=== PATIENT | female | born 1965 | race Caucasian/White ===

== ENCOUNTER → 2016-08-16 | Outpatient (CLI) | payer MEDICARE, MEDICAID ==
[~2016-08-16] MED LIST: /ESOM40CA OR; /FEXO18TA OR; ALBU17IN2 IN; AMBI10TA OR; ASPI81TA83 OR; CIPRO OR; DEXI60CA PO; FISH1000 OR; FLAX10005 PO; HYDR25TA6 OR; MULTIVIT OR; OXYC15TA76 PO; PERC5TAB8 OR; PROAIR INH; RANI15TA PO; SOMA350T PO; SOYCAP PO; VIT D 2000 OR; VITA500T OR; XANA1TAB2 OR; [UNRECOGNIZED DRUG - OTHER]
[2016-08-16 08:23] LABS: BASO # 0.1 K/mm3 (0.0-0.2); BASO % 1.4 % (0.0-1.0); EOS # 0.2 K/mm3 (0.0-0.50); EOS % 2.8 % (0.0-3.0); LYMPH # 2.1 K/mm3 (1.5-4.5); MEAN CORPUSCULAR HEMOGLOBIN 23.3 pg (27.0-33.0); MEAN CORPUSCULAR HGB CONC 31.4 g/dl (32.0-36.5); MEAN CORPUSCULAR VOLUME 74.2 fl (80.0-96.0); MONO # 0.4 K/mm3 (0.0-0.8); MONO % 7.2 % (0.0-5.0); NEUTROPHILS # 2.6 K/mm3 (1.8-7.7); NEUTROPHILS % 48.4 % (36.0-66.0); RED CELL DISTRIBUTION WIDTH 18.2 % (11.5-14.5); WHITE BLOOD COUNT 5.3 K/mm3 (4.0-10.0)
[2016-08-16 08:52] LABS: ALBUMIN 3.5 GM/DL (3.2-5.2); ALBUMIN/GLOBULIN RATIO 0.92 (1.00-1.93); ALKALINE PHOSPHATASE 112 U/L (45-117); ALT/SGPT 18 U/L (12-78); ANION GAP 9 MEQ/L (8-16); AST/SGOT 13 U/L (15-37); BILIRUBIN,TOTAL 0.2 MG/DL (0.2-1.0); BLOOD UREA NITROGEN 15 MG/DL (7-18); CALCIUM LEVEL 9.2 MG/DL (8.5-10.1); CARBON DIOXIDE LEVEL 30 MEQ/L (21-32); CHLORIDE LEVEL 104 MEQ/L (98-107); CHOLESTEROL LEVEL 159 MG/DL (<200); CREATININE FOR GFR 0.86 MG/DL (0.55-1.02); FERRITIN 5 NG/ML (8-252); FREE T4 1.13 NG/DL (0.76-1.46); GLOMERULAR FILTRATION RATE > 60.0 (>51); GLUCOSE, FASTING 110 MG/DL (70-105); PERCENT SATURATION 4.3 % (13.2-37.4); POTASSIUM SERUM 3.3 MEQ/L (3.5-5.1); SODIUM LEVEL 143 MEQ/L (136-145); TOTAL IRON BINDING CAPACITY 445 UG/DL (250-450); TOTAL PROTEIN 7.3 GM/DL (6.4-8.2); TRIGLYCERIDES LEVEL 80 MG/DL (<150)
[2016-08-16 10:39] LABS: FOLATE 7.1 NG/ML; VITAMIN B12 LEVEL 212 PG/ML
== END ==
LOC: M LAB 07:41
PROVIDERS: ATTEND Physician Assistant
DX: E55.9 Vitamin D deficiency, unspecified (principal); I10 Essential (primary) hypertension; Z86.39 Personal history of other endocrine, nutritional and metabolic disease; D50.9 Iron deficiency anemia, unspecified; M79.7 Fibromyalgia; R73.03 Prediabetes; K21.9 Gastro-esophageal reflux disease without esophagitis; J30.9 Allergic rhinitis, unspecified; K44.9 Diaphragmatic hernia without obstruction or gangrene; Z79.899 Other long term (current) drug therapy

== ENCOUNTER → 2016-11-08 | Outpatient (REF) | payer MEDICARE, MEDICAID ==
[2016-11-08 14:19] LABS: RETICULOCYTE % ADVIA2120 1.4 % (0.5-1.5)
[2016-11-08 14:29] LABS: FERRITIN 5 NG/ML (8-252); PERCENT SATURATION 6.8 % (13.2-37.4); TOTAL IRON BINDING CAPACITY 454 UG/DL (250-450); TOTAL PROTEIN 7.6 GM/DL (6.4-8.2)
[2016-11-08 14:40] LABS: VITAMIN B12 LEVEL 267 PG/ML (247-911)
[2016-11-12 10:34] LABS: ALBUMIN 3.94 GM/DL (3.29-5.55); ALBUMIN % 51.9 % (55.8-66.1)
[2016-11-12 10:35] LABS: GAMMA GLOBULIN % 18.4 % (11.1-18.8)
== END ==
LOC: M LAB REF 13:28
PROVIDERS: ATTEND Internal Medicine Medical Oncology
DX: D64.9 Anemia, unspecified (principal)

== ENCOUNTER → 2016-12-12 | Outpatient (CLI) | payer MEDICARE, MEDICAID ==
[~2016-12-12] MED LIST changes: +E-Z-GAS II EFFERVESCENT PACKET (SODIUM BICARB./CITRIC ACID/SIMETHICONE) As Ordered ONE; +E-Z-HD 98% w/w 340GM SUSP BTL As Ordered ONE; +E-Z-PAQUE 96% w/w SUSP 176GM BTL As Ordered ONE
--- NOTE | 2016-12-12 16:06 | REP ---
UPPER GI, SINGLE CONTRAST: The procedure was performed under the direct supervision of Dr. Jc. The images were reviewed with Dr. Jc. The stock order lister film shows no organomegaly or pathological masses. The intestinal gas pattern is nonspecific. Liquid barium was given in the erect and prone oblique positions. The oral and pharyngeal stages of deglutition are unremarkable. Esophageal transport is prompt and efficient and there is no esophagitis, stricture, mucosal ring or hiatal hernia. The patient is status post Vincenzo fundoplasty. Contrast is seen passing through the gastroesophageal junction without delay. There is no evidence of stricture or obstruction. Gastroesophageal reflux is not demonstrated on this examination. The stomach jiménez are normally outlined. The rugal folds are smooth and regular. There is no gastritis, neoplasm or ulcer disease. The duodenal jiménez are normally outlined. The mucosal folds are smooth and regular. There is no duodenitis, pancreatitis, peptic ulcer disease, or neoplasm. The visualized portion of the proximal small bowel appears normal in course and caliber. IMPRESSION: Postsurgical changes consistent with the patient's history of Vincenzo fundoplasty. Otherwise unremarkable single contrast upper GI examination. 2 minutes and 20 seconds of fluoroscopy time was utilized for this procedure. Reviewed by TOO Carrasco 12/12/2016 04:26 PEdited and Signed by Theo Jc MD 12/12/2016 04:43 P
== END ==
LOC: M RAD 09:34
PROVIDERS: ATTEND Physician Assistant Surgical
DX: Z98.890 Other specified postprocedural states (principal)

== ENCOUNTER → 2017-02-02 | Outpatient (CLI) | payer MEDICARE, MEDICAID ==
[~2017-02-02] MED LIST changes: -E-Z-GAS II EFFERVESCENT PACKET (SODIUM BICARB./CITRIC ACID/SIMETHICONE) As Ordered ONE; -E-Z-HD 98% w/w 340GM SUSP BTL As Ordered ONE; -E-Z-PAQUE 96% w/w SUSP 176GM BTL As Ordered ONE
--- NOTE | 2017-02-05 16:54 | REP ---
MRI study of the left ankle without contrast: History: Left ankle pain. Evaluate tendon transfer. Achilles tendinopathy pain. The patient is status post flexor hallicis longus tendon transfer. Comparison prior postoperative MRI study is retrieved from an outside institution dated 01/10/2015. Technique: Sagittal, axial and coronal imaging planes utilized. T1 proton density T2-weighted scans were obtained with and without fat saturation. MRI findings: There is a non metallic screw fixation device oriented somewhat vertically in the posterior calcaneus as on the prior study associated with the flexor hallucis longus tendon transfer procedure. The transferred tendon shows some thickening as does the quinault Achilles tendon. On proton density weighted images there is some increased signal intensity in both the transferred tendon in the distal Achilles tendon although this is improved when compared with the appearance on the previous study. There is no adjacent marrow edema in the calcaneus. This is also an improvement. There does appear to be some heterotopic bone formation along the superior aspect of the calcaneus anterior to the pain 10 tendon transfer. No danilo tendon discontinuity is seen. There is a small quantity of ankle joint fluid visible anteriorly and laterally. No osteochondral defect lesion is seen. The peroneus longus and brevis tendons appear intact. The tibialis posterior and flexor digitorum tendons appear intact. No ligament disruption is seen at the ankle. Impression: Moderate to advanced distal Achilles tendinopathy. The patient status post flexor hallicis longus tendon transfer procedure with some tendinosis in the transfer tendon. Heterotopic bone formation is seen. The appearance is improved when compared with the prior MRI imaging 01/10/2015. Signed by Gilberto Stewart MD 02/05/2017 05:54 P
== END ==
LOC: M RAD 10:32
PROVIDERS: ATTEND Orthopaedic Surgery
DX: M25.572 Pain in left ankle and joints of left foot (principal); Z48.89 Encounter for other specified surgical aftercare

== ENCOUNTER → 2017-03-05 | Outpatient (REF) | payer MEDICARE, MEDICAID ==
[~2017-03-05] MED LIST changes: -DEXI60CA PO; +DEXI60CA2 PO
[2017-03-05 15:51] LABS: PERCENT SATURATION 6.5 % (13.2-37.4)
== END ==
LOC: M LAB REF 13:30
PROVIDERS: ATTEND Internal Medicine Medical Oncology
DX: C50.919 Malignant neoplasm of unspecified site of unspecified female breast (principal)

== ENCOUNTER → 2017-04-05 | Outpatient (CLI) | payer MEDICARE, MEDICAID ==
[2017-04-05 08:21] LABS: BASO % 0.9 % (0.0-1.0); EOS # 0.2 K/mm3 (0.0-0.50); EOS % 3.2 % (0.0-3.0); LYMPH # 2.1 K/mm3 (1.5-4.5); LYMPH % 43.7 % (24.0-44.0); MEAN CORPUSCULAR HEMOGLOBIN 24.7 pg (27.0-33.0); MEAN CORPUSCULAR HGB CONC 31.5 g/dl (32.0-36.5); MEAN CORPUSCULAR VOLUME 78.2 fl (80.0-96.0); MONO # 0.3 K/mm3 (0.0-0.8); MONO % 6.1 % (0.0-5.0); NEUTROPHILS % 43.7 % (36.0-66.0); RED CELL DISTRIBUTION WIDTH 16.8 % (11.5-14.5); WHITE BLOOD COUNT 4.6 K/mm3 (4.0-10.0)
[2017-04-05 08:41] LABS: ALBUMIN 3.2 GM/DL (3.2-5.2); ALBUMIN/GLOBULIN RATIO 0.82 (1.00-1.93); ALKALINE PHOSPHATASE 101 U/L (45-117); ALT/SGPT 18 U/L (12-78); ANION GAP 8 MEQ/L (8-16); AST/SGOT 16 U/L (15-37); BILIRUBIN,TOTAL 0.4 MG/DL (0.2-1.0); BLOOD UREA NITROGEN 16 MG/DL (7-18); CALCIUM LEVEL 8.6 MG/DL (8.5-10.1); CARBON DIOXIDE LEVEL 29 MEQ/L (21-32); CHLORIDE LEVEL 107 MEQ/L (98-107); CHOLESTEROL LEVEL 145 MG/DL (<200); CREATININE FOR GFR 0.77 MG/DL (0.55-1.02); FERRITIN 6 NG/ML (8-252); GLOMERULAR FILTRATION RATE > 60.0 (>51); GLUCOSE, FASTING 103 MG/DL (70-105); PERCENT SATURATION 8.3 % (13.2-45.0); POTASSIUM SERUM 3.7 MEQ/L (3.5-5.1); SODIUM LEVEL 144 MEQ/L (136-145); TOTAL IRON BINDING CAPACITY 410 UG/DL (250-450); TOTAL PROTEIN 7.1 GM/DL (6.4-8.2); TRIGLYCERIDES LEVEL 85 MG/DL (<150)
[2017-04-05 09:03] LABS: FOLATE 14.3 NG/ML; VITAMIN B12 LEVEL 346 PG/ML
== END ==
LOC: M LAB 07:35
PROVIDERS: ATTEND Physician Assistant
DX: I10 Essential (primary) hypertension (principal); D50.9 Iron deficiency anemia, unspecified; M79.7 Fibromyalgia; K21.9 Gastro-esophageal reflux disease without esophagitis; K44.9 Diaphragmatic hernia without obstruction or gangrene; E87.6 Hypokalemia; R73.03 Prediabetes; E53.8 Deficiency of other specified B group vitamins

== ENCOUNTER → 2017-04-05 | Outpatient (CLI) | payer MEDICARE, MEDICAID ==
--- NOTE | 2017-04-05 11:49 | REP ---
NUCLEAR GASTRIC EMPTYING SCAN: Following the oral administration of 1.04 mCi of technetium-99m sulfur colloid in two scrambled eggs with 6 ounces of water multiple images of the upper abdomen are performed in the anterior and posterior projections for 90 minutes. The gastric activity is measured and the gastric emptying time is calculated. At the end of 90 minutes 64% of the ingested activity has emptied from the stomach. This yields a T1/2 of 73 minutes which is normal. IMPRESSION: Normal gastric emptying. Signed by Theo Jc MD 04/05/2017 11:59 A
== END ==
LOC: M RAD 08:04
PROVIDERS: ATTEND Physician Assistant Surgical
DX: R14.0 Abdominal distension (gaseous) (principal); I10 Essential (primary) hypertension; D50.9 Iron deficiency anemia, unspecified; M79.7 Fibromyalgia; K21.9 Gastro-esophageal reflux disease without esophagitis; K44.9 Diaphragmatic hernia without obstruction or gangrene; E55.9 Vitamin D deficiency, unspecified; E87.6 Hypokalemia; R73.03 Prediabetes; E53.8 Deficiency of other specified B group vitamins
CPT/HCPCS: 36415; 78264; 80053; 80061; 82306; 82607; 82728; 82746; 83036; 83550; 84443; 85027; A9541

== ENCOUNTER → 2017-10-10 | Outpatient (REF) | payer MEDICARE, MEDICAID ==
[2017-10-10 14:05] LABS: INFLUENZA A AMPLIFICATION NEGATIVE (NEGATIVE); INFLUENZA B AMPLIFICATION NEGATIVE (NEGATIVE)
== END ==
LOC: M LAB REF 13:01
DX: Z11.59 Encounter for screening for other viral diseases (principal)
CPT/HCPCS: 87502

== ENCOUNTER → 2017-10-31 | Outpatient (REF) | payer MEDICARE, MEDICAID ==
[2017-10-31 19:21] LABS: RETIC HEMOGLOBIN EQUIVALENT 27.5 pg (24-36); RETICULOCYTE # 43.1 10^9/L (17-77)
[2017-10-31 19:31] LABS: C REACTIVE PROTEIN QUANTITATIV 0.33 MG/DL (0.00-0.30); FERRITIN 5 NG/ML (8-252); IRON (FE) 25 UG/DL (50-170); PERCENT SATURATION 5.6 % (13.2-45.0); TOTAL IRON BINDING CAPACITY 448 UG/DL (250-450)
[2017-10-31 21:18] LABS: ERYTHROCYTE SEDIMENTATION RATE 26 mm/hr (0-30)
[2017-11-05 00:07] LABS: SOLUBLE TRANSFERRIN RECEPTOR 31.2 nmol/L (12.2-27.3)
== END ==
LOC: M LAB REF 18:08
DX: D50.9 Iron deficiency anemia, unspecified (principal)
CPT/HCPCS: 83550

== ENCOUNTER → 2018-01-28 | Outpatient (CLI) | payer MEDICARE, MEDICAID ==
[2018-01-28 11:46] LABS: ERYTHROCYTE SEDIMENTATION RATE 19 mm/hr (0-30)
[2018-01-28 12:52] LABS: ALBUMIN 3.3 GM/DL (3.2-5.2); ALBUMIN/GLOBULIN RATIO 0.87 (1.00-1.93); ALKALINE PHOSPHATASE 110 U/L (45-117); ALT/SGPT 26 U/L (12-78); AMYLASE 47 U/L (25-115); AST/SGOT 15 U/L (7-37); BILIRUBIN,DIRECT < 0.1 MG/DL (0.0-0.2); BILIRUBIN,TOTAL 0.2 MG/DL (0.2-1.0); C REACTIVE PROTEIN QUANTITATIV 0.47 MG/DL (0.00-0.30); LIPASE 156 U/L (73-393); TOTAL PROTEIN 7.1 GM/DL (6.4-8.2)
== END ==
LOC: M LAB 10:46
DX: R10.13 Epigastric pain (principal); R68.81 Early satiety; K21.9 Gastro-esophageal reflux disease without esophagitis; R19.4 Change in bowel habit; E55.9 Vitamin D deficiency, unspecified

== ENCOUNTER → 2018-03-27 | Outpatient (CLI) | payer MEDICARE, MEDICAID ==
[2018-03-27 08:57] LABS: C REACTIVE PROTEIN QUANTITATIV 0.43 MG/DL (0.00-0.30); FERRITIN 6 NG/ML (8-252); IRON (FE) 39 UG/DL (50-170); PERCENT SATURATION 9.5 % (13.2-45.0); TOTAL IRON BINDING CAPACITY 412 UG/DL (250-450)
[2018-03-27 09:03] LABS: FOLATE 8.4 NG/ML; VITAMIN B12 LEVEL 219 PG/ML
[2018-03-27 09:20] LABS: ERYTHROCYTE SEDIMENTATION RATE 16 mm/hr (0-30)
== END ==
LOC: M LAB 08:03
DX: E53.8 Deficiency of other specified B group vitamins (principal); D50.9 Iron deficiency anemia, unspecified; M79.7 Fibromyalgia
CPT/HCPCS: 82746

== ENCOUNTER → 2018-04-15 | Outpatient (CLI) | payer MEDICARE, MEDICAID ==
[2018-04-15 09:00] LABS: BASO # 0.1 10^3/uL (0.0-0.2); BASO % 1.1 % (0.0-1.0); EOS # 0.1 10^3/uL (0.0-0.50); EOS % 2.7 % (0.0-3.0); HEMATOCRIT 37.7 % (36.0-47.0); HEMOGLOBIN 11.9 g/dl (12.0-15.5); IMMATURE GRANULOCYTE % 0.8 % (0-3.0); LYMPH # 2.1 10^3/uL (1.5-4.5); LYMPH % 40.4 % (24.0-44.0); MEAN CORPUSCULAR HEMOGLOBIN 25.9 pg (27.0-33.0); MEAN CORPUSCULAR HGB CONC 31.6 g/dl (32.0-36.5); MONO # 0.4 10^3/uL (0.0-0.8); MONO % 7.5 % (0.0-5.0); NEUTROPHILS # 2.5 10^3/uL (1.8-7.7); NEUTROPHILS % 47.5 % (36.0-66.0); PLATELET COUNT, AUTOMATED 303 10^3/uL (150-450); RED CELL DISTRIBUTION WIDTH 15.8 % (11.5-14.5); WHITE BLOOD COUNT 5.2 10^3/uL (4.0-10.0)
[2018-04-15 09:10] LABS: ESTIMATED AVERAGE GLUCOSE 131 MG/DL (60-110); HEMOGLOBIN A1c 6.2 %
[2018-04-15 09:24] LABS: ALBUMIN 3.5 GM/DL (3.2-5.2); ALKALINE PHOSPHATASE 106 U/L (45-117); ALT/SGPT 20 U/L (12-78); ANION GAP 7 MEQ/L (8-16); AST/SGOT 17 U/L (7-37); BILIRUBIN,TOTAL 0.3 MG/DL (0.2-1.0); BLOOD UREA NITROGEN 14 MG/DL (7-18); CARBON DIOXIDE LEVEL 28 MEQ/L (21-32); CHLORIDE LEVEL 107 MEQ/L (98-107); CHOLESTEROL LEVEL 164 MG/DL (<200); CHOLESTEROL RISK RATIO 3.727 (<5); CREATININE FOR GFR 0.75 MG/DL (0.55-1.30); FERRITIN 8 NG/ML (8-252); GLOMERULAR FILTRATION RATE > 60.0 (>51); GLUCOSE, FASTING 109 MG/DL (70-100); HDL CHOLESTEROL 44 MG/DL (>40); NON-HDL-C 120 MG/DL; SODIUM LEVEL 142 MEQ/L (136-145); THYROID STIMULATING HORMONE 0.427 uIU/ML (0.358-3.740); TOTAL PROTEIN 7.4 GM/DL (6.4-8.2); TRIGLYCERIDES LEVEL 85 MG/DL (<150)
[2018-04-15 10:08] LABS: FOLATE 9.4 NG/ML (>5.4)
[2018-04-15 10:34] LABS: APPEARANCE, URINE TURBID (CLEAR); BACTERIA, URINE AUTO NEGATIVE (NEGATIVE); BILIRUBIN, URINE AUTO NEGATIVE (NEGATIVE); BLOOD, URINE BLOOD NEGATIVE (NEGATIVE); COLOR, URINE YELLOW (YELLOW); GLUCOSE, URINE (UA) AUTO NEGATIVE (NEGATIVE); KETONE, URINE AUTO NEGATIVE (NEGATIVE); LEUKOCYTE ESTERASE, URINE AUTO NEGATIVE (NEGATIVE); MUCUS, URINE MODERATE (NEGATIVE); NITRITE, URINE AUTO NEGATIVE (NEGATIVE); PROTEIN, URINE AUTO 1+ mg/dL (NEGATIVE); RBC, URINE AUTO 0 /HPF (0-3); SQUAMOUS EPITHELIAL CELL UR AU 12 /HPF (0-6); UROBILINOGEN, URINE AUTO 0.2 mg/dL (0.0-2.0); WBC, URINE AUTO 1 /HPF (0-3)
== END ==
LOC: M LAB 07:48
DX: I10 Essential (primary) hypertension (principal); D50.9 Iron deficiency anemia, unspecified; J30.9 Allergic rhinitis, unspecified; M79.7 Fibromyalgia; R73.03 Prediabetes; K21.9 Gastro-esophageal reflux disease without esophagitis; E55.9 Vitamin D deficiency, unspecified; E53.8 Deficiency of other specified B group vitamins; Z79.899 Other long term (current) drug therapy
CPT/HCPCS: 82746

== ENCOUNTER → 2018-04-26 | Outpatient (REF) | payer MEDICARE, MEDICAID ==
[2018-04-30 00:06] LABS: H PYLORI STOOL ANTIGEN Negative (Negative)
== END ==
LOC: M LAB REF 10:29
DX: K21.9 Gastro-esophageal reflux disease without esophagitis (principal); Z86.19 Personal history of other infectious and parasitic diseases
CPT/HCPCS: 87338

== ENCOUNTER → 2018-10-21 | Outpatient (CLI) | payer MEDICARE, MEDICAID ==
[~2018-10-21] MED LIST changes: +LOSA50TA5 PO
--- NOTE | 2018-10-21 12:50 | REP ---
Chest two views HISTORY: Right chest wall lesion Comparison: 08/24/2013 The lungs are clear. The heart is normal in size. The pulmonary vasculature is normal in appearance. The bony structure is intact. IMPRESSION: No acute disease. Electronically Signed by Mathieu Monroy MD 10/21/2018 12:41 P
--- NOTE | 2018-10-21 12:57 | REP ---
UNILATERAL RIGHT RIBS, FOUR VIEWS: HISTORY: Chest wall lump. There is no acute fracture or bone lesion. The right lung is clear. IMPRESSION: There is no acute fracture or bone lesion. Electronically Signed by Mathieu Monroy MD 10/21/2018 01:48 P
== END ==
LOC: M RAD 12:04 → M LAB 12:04
PROVIDERS: ATTEND Surgery
DX: R22.2 Localized swelling, mass and lump, trunk (principal)

== ENCOUNTER → 2018-10-27 | Outpatient (CLI) | payer MEDICARE, MEDICAID ==
[2018-10-27 08:40] LABS: BLOOD UREA NITROGEN 17 MG/DL (7-18); CREATININE FOR GFR 0.81 MG/DL (0.55-1.30); GLOMERULAR FILTRATION RATE > 60.0 (>51)
== END ==
LOC: M LAB 07:36
PROVIDERS: ATTEND Surgery
DX: R07.89 Other chest pain (principal)

== ENCOUNTER → 2018-10-28 | Outpatient (CLI) | payer MEDICARE, MEDICAID ==
[~2018-10-28] MED LIST changes: +ISOVUE-370 76% 125ML VIAL (Q9967 PER ML) As Ordered ONE
--- NOTE | 2018-10-28 13:42 | REP ---
CT CHEST WITH IV CONTRAST: HISTORY: Chest wall pain. Question of a mass right chest wall. No comparison chest CT study. Comparison abdomen CT images are from January 28, 2018. CT CONTRAST DOSE: 75 mL of intravenous Isovue [address] FINDINGS: Digital preliminary environmental advisor view is unremarkable. Lung castellano are clear. No infiltrate or pulmonary mass lesion is seen. There is no evidence of pulmonary nodule. There is some linear fibrosis in the lingular segment left upper lobe mild in degree. No pleural or pericardial effusion is seen. No hilar or mediastinal mass or adenopathy is observed. There is no evidence of chest wall mass on either side. No skeletal muscle lesion is seen. No axillary mass or adenopathy is observed. There is evidence of fatty infiltration of the liver diffusely. No adrenal lesion is seen. The visualized upper abdominal structures are otherwise unremarkable. IMPRESSION: No evidence of mass or adenopathy. There is evidence of some fatty infiltration of the liver. No rib lesion is seen. No active cardiopulmonary disease. Electronically Signed by Gilberto Stewart MD 10/28/2018 07:48 P
== END ==
LOC: M RAD 07:37
PROVIDERS: ATTEND Surgery
DX: R22.2 Localized swelling, mass and lump, trunk (principal); I10 Essential (primary) hypertension; D50.9 Iron deficiency anemia, unspecified; R73.03 Prediabetes; F34.1 Dysthymic disorder; R73.01 Impaired fasting glucose
CPT/HCPCS: 36415; 71260; 80053; 80061; 82306; 83036; 84439; 84443; 85027; Q9967

== ENCOUNTER → 2018-10-28 | Outpatient (CLI) | payer MEDICARE, MEDICAID ==
[~2018-10-28] MED LIST changes: -ISOVUE-370 76% 125ML VIAL (Q9967 PER ML) As Ordered ONE
[2018-10-28 08:00] LABS: BASO # 0.1 10^3/uL (0.0-0.2); BASO % 0.9 % (0.0-1.0); EOS # 0.2 10^3/uL (0.0-0.50); EOS % 2.9 % (0.0-3.0); HEMATOCRIT 41.4 % (36.0-47.0); HEMOGLOBIN 13.6 g/dl (12.0-15.5); LYMPH # 2.5 10^3/uL (1.5-4.5); LYMPH % 45.5 % (24.0-44.0); MEAN CORPUSCULAR HEMOGLOBIN 29.2 pg (27.0-33.0); MEAN CORPUSCULAR HGB CONC 32.9 g/dl (32.0-36.5); MONO # 0.4 10^3/uL (0.0-0.8); MONO % 7.3 % (0.0-5.0); NEUTROPHILS # 2.4 10^3/uL (1.8-7.7); NEUTROPHILS % 43.2 % (36.0-66.0); PLATELET COUNT, AUTOMATED 279 10^3/uL (150-450); RED BLOOD COUNT 4.65 10^6/uL (4.00-5.40); WHITE BLOOD COUNT 5.5 10^3/uL (4.0-10.0)
[2018-10-28 08:34] LABS: ALBUMIN 3.5 GM/DL (3.2-5.2); ALT/SGPT 22 U/L (12-78); BILIRUBIN,TOTAL 0.5 MG/DL (0.2-1.0); BLOOD UREA NITROGEN 14 MG/DL (7-18); CARBON DIOXIDE LEVEL 29 MEQ/L (21-32); CHLORIDE LEVEL 106 MEQ/L (98-107); CHOLESTEROL LEVEL 160 MG/DL (<200); CHOLESTEROL RISK RATIO 4.102 (<5); CREATININE FOR GFR 0.89 MG/DL (0.55-1.30); FREE T4 1.05 NG/DL (0.76-1.46); GLOMERULAR FILTRATION RATE > 60.0 (>51); GLUCOSE, FASTING 104 MG/DL (70-100); HDL CHOLESTEROL 39 MG/DL (>40); LDL CHOLESTEROL 98 MG/DL (<100); NON-HDL-C 121 MG/DL; POTASSIUM SERUM 3.5 MEQ/L (3.5-5.1); SODIUM LEVEL 142 MEQ/L (136-145); THYROID STIMULATING HORMONE 0.584 uIU/ML (0.358-3.740); TRIGLYCERIDES LEVEL 114 MG/DL (<150)
[2018-10-28 08:40] LABS: HEMOGLOBIN A1c 6.1 %
[2018-10-28 09:55] LABS: TOTAL 25(OH) VITAMIN D 16.7 NG/ML (30.0-100.0)
== END ==
LOC: M LAB 07:18
PROVIDERS: ATTEND Physician Assistant
DX: I10 Essential (primary) hypertension (principal); D50.9 Iron deficiency anemia, unspecified; R73.03 Prediabetes; F34.1 Dysthymic disorder; R73.01 Impaired fasting glucose

== ENCOUNTER → 2018-11-12 | Outpatient (CLI) | payer MEDICARE, MEDICAID ==
[~2018-11-12] MED LIST changes: -/ESOM40CA OR; +NEXI1CAP3 OR
--- NOTE | 2018-11-12 12:48 | REP ---
THYROID ULTRASOUND: Real-time sonographic evaluation of the thyroid performed. Both lobes are somewhat enlarged, right lobe measuring 5.7 x 2.6 x 2.3 cm and left lobe 5.9 x 1.5 x 2.0 cm. There are multiple nodules and cysts bilaterally. Most of the cysts are complex with internal septations and some solid components. There is a dominant cystic and solid nodule in the right mid aspect 1.6 cm in diameter. Hypoechoic nodule in the right upper pole measures 8 mm at the maximum diameter and in the right lower pole 1.1 cm. Largest nodule on the left is in the mid aspect 1.3 cm in maximum diameter. A few other subcentimeter nodules are seen in the left lob. None of these demonstrate distal acoustic shadowing or demonstrate internal calcifications. IMPRESSION: Multiple nodules and complex cysts bilaterally. None of these are suspicious in appearance to warrant FNA and all have a benign appearance. Recommend followup ultrasound in 6-12 months. Electronically Signed by Theo Jc MD 11/12/2018 04:35 P
== END ==
LOC: M RAD 10:31
PROVIDERS: ATTEND Physician Assistant
DX: E04.1 Nontoxic single thyroid nodule (principal)

== ENCOUNTER → 2019-04-27 | Outpatient (CLI) | payer MEDICARE, MEDICAID ==
[2019-04-27 09:34] LABS: HEMATOCRIT 43.4 % (36.0-47.0); HEMOGLOBIN 14.5 g/dl (12.0-15.5); MEAN CORPUSCULAR HGB CONC 33.4 g/dl (32.0-36.5); MEAN CORPUSCULAR VOLUME 92.9 fl (80.0-96.0); PLATELET COUNT, AUTOMATED 282 10^3/uL (150-450); RED BLOOD COUNT 4.67 10^6/uL (4.00-5.40); WHITE BLOOD COUNT 7.2 10^3/uL (4.0-10.0)
[2019-04-27 10:05] LABS: BLOOD UREA NITROGEN 15 MG/DL (7-18); CALCIUM LEVEL 9.5 MG/DL (8.5-10.1); CARBON DIOXIDE LEVEL 29 MEQ/L (21-32); CHLORIDE LEVEL 104 MEQ/L (98-107); CHOLESTEROL LEVEL 190 MG/DL (<200); CHOLESTEROL RISK RATIO 4.222 (<5); CREATININE FOR GFR 0.72 MG/DL (0.55-1.30); GLOMERULAR FILTRATION RATE > 60.0 (>51); GLUCOSE, FASTING 93 MG/DL (70-100); HDL CHOLESTEROL 45 MG/DL (>40); LDL CHOLESTEROL 121 MG/DL (<100); NON-HDL-C 145 MG/DL; POTASSIUM SERUM 4.3 MEQ/L (3.5-5.1); SODIUM LEVEL 141 MEQ/L (136-145); THYROID STIMULATING HORMONE 0.885 uIU/ML (0.358-3.740); TRIGLYCERIDES LEVEL 121 MG/DL (<150)
== END ==
LOC: M LAB 08:38
DX: E04.1 Nontoxic single thyroid nodule (principal)

== ENCOUNTER → 2019-06-02 | Outpatient (CLI) | payer MEDICARE, MEDICAID ==
--- NOTE | 2019-06-08 15:53 | DEXA ---
AP SPINE L1 - L4 1.243 0.4 1.3 LT FEMUR TOTAL 1.034 0.2 0.9 LT NECK 0.946 -0.7 0.4 RT FEMUR TOTAL 0.999 -0.1 0.6 RT NECK 0.912 -0.9 0.1 TOTAL BODY TOTAL OTHER COMMENTS: Normal bone densitometry of the spine and hips. FOLLOW-UP: Recommendation for the next bone density exam: 5 years. AMBERD
== END ==
LOC: M WHC 11:56
DX: Z00.00 Encounter for general adult medical examination without abnormal findings (principal); K21.9 Gastro-esophageal reflux disease without esophagitis; Z79.51 Long term (current) use of inhaled steroids; Z79.899 Other long term (current) drug therapy

== ENCOUNTER → 2019-09-20 | Outpatient (REF) | payer MEDICARE, MEDICAID ==
[~2019-09-20] MED LIST changes: +ALLE180T33 PO; +AMBI10TA PO; +PROV108A INH; +RA T500C2 PO; +XANA1TAB2 PO
[2019-09-20 21:58] LABS: INFLUENZA A AMPLIFICATION NEGATIVE (NEGATIVE); INFLUENZA B AMPLIFICATION NEGATIVE (NEGATIVE)
== END ==
LOC: M LAB REF 20:54
PROVIDERS: ATTEND Physician Assistant Medical
DX: R50.9 Fever, unspecified (principal)

== ENCOUNTER → 2020-01-20 | Outpatient (CLI) | payer MEDICARE, MEDICAID ==
[~2020-01-20] MED LIST changes: +METH1TAB40 PO; +OXYC-1 PO; -OXYC15TA76 PO; +QC A650T3 PO
--- NOTE | 2020-01-20 16:24 | REP ---
REASON: Facial swelling. Six limited plain film views of the facial bones show no evidence of a gross fracture or paranasal sinus air-fluid levels. Negative limited plain film examination of the facial bones. CT if the gold standard in imaging the facial bones if a fracture is of clinical concern. Additionally, CT is more sensitive in detecting paranasal sinus abnormalities than is plain film. Electronically Signed by Stanley Ward DO 01/20/2020 05:06 P
== END ==
LOC: M RAD 11:33
PROVIDERS: ATTEND Student in an Organized Health Care Education/Training Program
DX: R22.0 Localized swelling, mass and lump, head (principal)

== ENCOUNTER 2020-01-21 16:02 | Emergency (ER) | payer MEDICARE, MEDICAID ==
[~2020-01-21] VITALS: Ht 157.5 cm; Wt 119.2 kg
[~2020-01-21 16:02] MED LIST changes: -METH1TAB40 PO; -QC A650T3 PO
[2020-01-21] MEDS ORDERED: QC A650T3 PO (16:17)
[2020-01-21] MEDS ORDERED: METH1TAB40 PO (16:17)
--- NOTE | 2020-01-21 17:41 | REPVR ---
PROCEDURE INFORMATION: Exam: CT Head Without Contrast Exam date and time: 01/21/2020 5:20 PM Age: 54 years old Clinical indication: Pain; Headache; Prior surgery; Additional info: Subacute trauma, acute dizziness TECHNIQUE: Imaging protocol: Computed tomography of the head without contrast. Radiation optimization: All CT scans at this facility use at least one of these dose optimization techniques: automated exposure control; mA and/or kV adjustment per patient size (includes targeted exams where dose is matched to clinical indication); or iterative reconstruction. COMPARISON: Thyroid, ST head+neck US 11/12/2018 10:42 AM FINDINGS: Brain: No acute intracranial hemorrhage, cerebral edema, or midline shift. Ventricles: No hydrocephalus. Bones/joints: A chronic right zygomatic arch fracture is noted. Sinuses: No acute sinusitis. Mastoid air cells: Visualized mastoid air cells are well aerated. Soft tissues: Unremarkable. IMPRESSION: No acute intracranial abnormality. Electronically signed by: Lc Barth On 01/21/2020 17:40:55 PM
[2020-01-21 18:07] VITALS: BP 132/74
--- NOTE | 2020-01-21 21:37 | ECGEPIP ---
[facility] - ED Test Date: 2020-01-21 Pat Name: JAMES CADET Department: Room: - Gender: Female Nurse Prn: : 1965 Requested By: Sherrie Barfield Order Number: [id number] Reading MD: Ryan Chu Measurements Intervals [place] Rate: 70 P: 26 WA: 181 QRS: -4 QRSD: 88 T: -7 QT: 399 QTc: 432 Interpretive Statements SINUS RHYTHM POOR R WAVE PROGRESSION LOW QRS VOLTAGE IN PRECORDIAL LEADS NONSPECIFIC T WAVE ABNORMALITIES SIMILAR TO 01/28/18 Electronically Signed on 01-21-2020 21:37:01 EDT by Ryan Chu
== END 2020-01-21 18:32 | disposition home or self-care (01) ==
LOC: M ED 16:02
DX: F07.81 Postconcussional syndrome (principal); Z79.899 Other long term (current) drug therapy; Z79.891 Long term (current) use of opiate analgesic

== ENCOUNTER → 2020-02-22 | Outpatient (CLI) | payer MEDICARE, MEDICAID ==
[~2020-02-22] MED LIST changes: +AMOX500C PO; +METH1TAB40 PO; +QC A650T3 PO
== END ==
LOC: M LABSMTC 13:11
PROVIDERS: ATTEND Anesthesiology
DX: Z01.818 Encounter for other preprocedural examination (principal); Z11.59 Encounter for screening for other viral diseases; Z20.828 Contact with and (suspected) exposure to other viral communicable diseases
CPT/HCPCS: C9803; U0002

== ENCOUNTER 2020-02-26 07:04 | Day surgery (SDC) | payer MEDICARE, MEDICAID ==
[~2020-02-26] VITALS: Ht 157.5 cm; Wt 120.7 kg
[~2020-02-26 07:04] MED LIST changes: +LR 1,000 ML IV ONE
[2020-02-26] MEDS ORDERED: fentaNYL 100 MCG/2 ML INJECTION (J3010) As Ordered ONE (07:16)
[2020-02-26] MEDS ORDERED: ONDANSETRON 4MG/2ML VIAL As Ordered ONE (07:16)
[2020-02-26] MEDS ORDERED: MIDAZOLAM INJ 2MG/2ML VIAL (J2250 PER 1MG) As Ordered ONE (07:16)
[2020-02-26] MEDS ORDERED: dexameTHASONE 4 MG/ML 1ML VIAL (J1100 PER 1MG) As Ordered ONE (07:16)
[2020-02-26] MEDS ORDERED: propofoL 200 MG/20 ML VIAL As Ordered ONE (07:17)
[2020-02-26] MEDS ORDERED: LIDOCAINE 2% 100MG/5ML SDV (FOR ANES.) As Ordered ONE (07:17)
[2020-02-26] MEDS ORDERED: DESFLURANE 240 ML INHALANT As Ordered ONE (07:21)
[2020-02-26] MEDS ORDERED: LIDOCAINE W/EPINEPHRINE 1% 20ML VIAL As Ordered ONE (07:47)
[2020-02-26] MEDS ORDERED: OXYMETAZOLINE 0.05% NASAL SPRAY (AFRIN) As Ordered ONE (07:53)
[2020-02-26] MEDS ORDERED: ROCURONIUM BROMIDE 50 MG/5 ML VIAL As Ordered ONE (08:15)
[2020-02-26] MEDS ORDERED: SUCCINYLCHOLINE 100 MG/5 ML SYRINGE (J0330) As Ordered ONE (08:16)
[2020-02-26] MEDS ORDERED: SUGAMMADEX SODIUM 500 MG/5 ML VIAL (BRIDION) As Ordered ONE (08:25)
[2020-02-26] MEDS: fentaNYL 100 MCG/2 ML INJECTION (J3010) IV PRN ×8 (09:00→09:52)
[2020-02-26] MEDS ORDERED: METOCLOPRAMIDE INJ 10MG/2ML VIAL (J2765 PER 1) IV PRN (09:00)
[2020-02-26] MEDS ORDERED: LR 1,000 ML IV SCH ×2 (09:00)
[2020-02-26] MEDS ORDERED: ONDANSETRON 4MG/2ML VIAL IV PRN (09:00)
[2020-02-26] MEDS: oxyCODONE 5MG TAB PO PRN ×2 (09:06→09:47)
[2020-02-26] MEDS: MEPERIDINE INJ 25 MG/ML VIAL (J2175) IV PRN ×2 (09:11→09:16)
[2020-02-26 10:40] VITALS: BP 121/60
== END 2020-02-26 11:09 | disposition home or self-care (01) ==
LOC: M SDC 07:04
PROVIDERS: ATTEND Dentist Oral and Maxillofacial Surgery
DX: K02.9 Dental caries, unspecified (principal); I10 Essential (primary) hypertension; K21.9 Gastro-esophageal reflux disease without esophagitis; M79.7 Fibromyalgia; L40.8 Other psoriasis; E04.9 Nontoxic goiter, unspecified; K44.9 Diaphragmatic hernia without obstruction or gangrene; K58.8 Other irritable bowel syndrome; D64.9 Anemia, unspecified; Z88.1 Allergy status to other antibiotic agents; Z88.5 Allergy status to narcotic agent; Z88.8 Allergy status to other drugs, medicaments and biological substances
CPT/HCPCS: 41899; 88300; J0330; J1100; J2175; J2250; J2405; J2765; J3010

== ENCOUNTER 2020-04-25 17:57 | Emergency (ER) | payer MEDICARE, MEDICAID ==
[~2020-04-25] VITALS: Ht 157.5 cm; Wt 117.7 kg
[~2020-04-25 17:57] MED LIST changes: -LR 1,000 ML IV ONE
--- NOTE | 2020-04-25 18:56 | REPVR ---
PROCEDURE INFORMATION: Exam: CT Head Without Contrast Exam date and time: 04/25/2020 6:32 PM Age: 54 years old Clinical indication: Injury or trauma; Fall; Initial encounter; Blunt trauma (contusions or hematomas); Additional info: Fall, headache TECHNIQUE: Imaging protocol: Computed tomography of the head without contrast. Axial and coronal reformatted images were created and reviewed. Radiation optimization: All CT scans at this facility use at least one of these dose optimization techniques: automated exposure control; mA and/or kV adjustment per patient size (includes targeted exams where dose is matched to clinical indication); or iterative reconstruction. COMPARISON: CT Head without contrast 01/21/2020 5:17 PM FINDINGS: Brain: No CT evidence of acute intracranial hemorrhage or acute territorial infarction. No significant mass effect or midline shift. Basal cisterns patent. Ventricles: Normal in size and configuration. Bones/joints: No acute osseous abnormality. Mild chronic deformity of the right zygomatic arch. Paranasal sinuses: Minimal left ethmoid mucosal thickening. Mastoid air cells: Grossly unremarkable. Soft tissues: Grossly unremarkable. IMPRESSION: 1. No CT evidence of acute intracranial pathology. 2. Additional findings, as above. Electronically signed by: Jairo Khan On 04/25/2020 18:56:22 PM
--- NOTE | 2020-04-25 19:01 | REPVR ---
PROCEDURE INFORMATION: Exam: CT Maxillofacial Without Contrast Exam date and time: 04/25/2020 6:32 PM Age: 54 years old Clinical indication: Injury or trauma; Fall; Initial encounter; Blunt trauma (contusions or hematomas); Jaw; Not specified; Additional info: Fall, headache TECHNIQUE: Imaging protocol: Computed tomography images of the face without contrast. Axial, coronal and sagittal reformatted images were created and reviewed. Radiation optimization: All CT scans at this facility use at least one of these dose optimization techniques: automated exposure control; mA and/or kV adjustment per patient size (includes targeted exams where dose is matched to clinical indication); or iterative reconstruction. COMPARISON: 1. CT Maxilofacial w/out contrast 05/16/2016 4:[address] Head without contrast 01/21/2020 5:17:06 PM FINDINGS: Orbits: No acute intraorbital abnormality. Globes intact. Bones/joints: No acute osseous abnormality. Unchanged deformity of the right zygomatic arch. Paranasal sinuses: Minimal ethmoid mucosal thickening. Soft tissues: Improved right perizygomatic soft tissue swelling. IMPRESSION: 1. Unchanged deformity of the right zygomatic arch with improved overlying soft tissue swelling. 2. Additional findings, as above. Electronically signed by: Jairo Khan On 04/25/2020 19:00:37 PM
--- NOTE | 2020-04-25 19:03 | REPVR ---
PROCEDURE INFORMATION: Exam: CT Cervical Spine Without Contrast Exam date and time: 04/25/2020 6:32 PM Age: 54 years old Clinical indication: Injury or trauma; Fall; Initial encounter; Blunt trauma; Additional info: Fall, headache TECHNIQUE: Imaging protocol: Computed tomography images of the cervical spine without contrast. Axial, coronal and sagittal reformatted images were created and reviewed. Radiation optimization: All CT scans at this facility use at least one of these dose optimization techniques: automated exposure control; mA and/or kV adjustment per patient size (includes targeted exams where dose is matched to clinical indication); or iterative reconstruction. COMPARISON: Thyroid, ST head+neck US 11/12/2018 10:42 AM FINDINGS: Vertebrae: Osteopenia. Straightening of the normal cervical lordosis. Minimal anterolisthesis of C6 on C7 and C7 on T1. Alignment otherwise anatomic. Mild dextroscoliosis. No CT evidence of acute fracture, dislocation or subluxation. Vertebral body heights maintained. Discs/Spinal canal/Neural foramina: Mild multilevel degenerative changes, characterized by disc space narrowing, osteophytosis and uncovertebral and facet joint hypertrophy. Mild multilevel neural foraminal narrowing. No significant spinal stenosis. Thyroid gland: 1.1 cm low-density right thyroid nodule (no follow-up is indicated based on the imaging appearance). Soft tissues: Grossly unremarkable. Lungs: Grossly unremarkable. IMPRESSION: 1. No CT evidence of acute cervical spine traumatic injury. 2. Additional findings, as above. Electronically signed by: Jairo Khan On 04/25/2020 19:03:18 PM
[2020-04-25] MEDS ORDERED: ACETAMINOPHEN 500 MG TAB PO ONE (19:15)
[2020-04-25 19:54] VITALS: BP 131/69
== END 2020-04-25 19:57 | disposition home or self-care (01) ==
LOC: M ED 17:57
DX: G50.1 Atypical facial pain (principal); S80.211A Abrasion, right knee, initial encounter; S80.212A Abrasion, left knee, initial encounter; S80.811A Abrasion, right lower leg, initial encounter; S80.812A Abrasion, left lower leg, initial encounter; R51 Headache; W10.8XXA Fall (on) (from) other stairs and steps, initial encounter; Y92.410 Unspecified street and highway as the place of occurrence of the external cause; Z88.4 Allergy status to anesthetic agent; Z88.1 Allergy status to other antibiotic agents; Z88.5 Allergy status to narcotic agent; Z88.6 Allergy status to analgesic agent; Z88.8 Allergy status to other drugs, medicaments and biological substances; Z88.2 Allergy status to sulfonamides; Z79.899 Other long term (current) drug therapy; Z79.891 Long term (current) use of opiate analgesic; Z87.828 Personal history of other (healed) physical injury and trauma

== ENCOUNTER → 2020-05-25 | Outpatient (CLI) | payer MEDICARE, MEDICAID ==
[2020-05-25 12:43] LABS: BLOOD UREA NITROGEN 12 MG/DL (7-18); CALCIUM LEVEL 9.6 MG/DL (8.5-10.1); CARBON DIOXIDE LEVEL 27 MEQ/L (21-32); CHLORIDE LEVEL 105 MEQ/L (98-107); CHOLESTEROL LEVEL 173 MG/DL (<200); CHOLESTEROL RISK RATIO 4.119 (<5); CREATININE FOR GFR 0.65 MG/DL (0.55-1.30); GLOMERULAR FILTRATION RATE > 60.0 (>51); GLUCOSE, FASTING 106 MG/DL (70-100); HDL CHOLESTEROL 42 MG/DL (>40); LDL CHOLESTEROL 105 MG/DL (<100); NON-HDL-C 131 MG/DL; POTASSIUM SERUM 4.1 MEQ/L (3.5-5.1); SODIUM LEVEL 137 MEQ/L (136-145); TRIGLYCERIDES LEVEL 130 MG/DL (<150)
[2020-05-25 13:04] LABS: HEMOGLOBIN A1c 5.8 %
--- NOTE | 2020-05-30 09:05 | REP ---
SCOLIOSIS SERIES: 05/25/20 CLINICAL: Dorsalgia. TECHNIQUE: Single AP weight bearing view of the thoracolumbar spine. FINDINGS: Mild levoconvex scoliosis of 11 degrees centered at the T12-L1 level as measured from the superior endplate of T to the superior endplate of L4 noted. Vertebral bodies are normal in the frontal projection. Paravertebral soft tissues are unremarkable. IMPRESSION: 11 degrees levoconvex scoliosis centered at the T12-L1 level. MTDD
== END ==
LOC: M LAB 11:16
PROVIDERS: ATTEND Student in an Organized Health Care Education/Training Program
DX: Z00.00 Encounter for general adult medical examination without abnormal findings (principal); R73.03 Prediabetes; M25.561 Pain in right knee; I10 Essential (primary) hypertension; M17.11 Unilateral primary osteoarthritis, right knee

== ENCOUNTER 2020-06-09 10:30 | Outpatient (RCR) | payer MEDICARE, MEDICAID | END 2020-06-11 | LOC: M ST 10:30 | PROVIDERS: ATTEND Student in an Organized Health Care Education/Training Program | DX: F80.81 Childhood onset fluency disorder (principal) ==

== ENCOUNTER → 2020-12-06 | Outpatient (REF) | payer MEDICARE, MEDICAID ==
[~2020-12-06] MED LIST changes: +METH-1164 PO; -METH1TAB40 PO
[2020-12-06 13:24] LABS: HEMOGLOBIN A1c 5.7 %
[2020-12-06 13:48] LABS: ALBUMIN 3.4 GM/DL (3.2-5.2); ALT/SGPT 28 U/L (12-78); BILIRUBIN,TOTAL 0.5 MG/DL (0.2-1.0); BLOOD UREA NITROGEN 13 MG/DL (7-18); CALCIUM LEVEL 9.2 MG/DL (8.5-10.1); CARBON DIOXIDE LEVEL 27 MEQ/L (21-32); CHLORIDE LEVEL 105 MEQ/L (98-107); CHOLESTEROL LEVEL 162 MG/DL (<200); CHOLESTEROL RISK RATIO 3.857 (<5); CREATININE FOR GFR 0.68 MG/DL (0.55-1.30); FERRITIN 73 NG/ML (8-252); GLOMERULAR FILTRATION RATE > 60.0 (>51); GLUCOSE, FASTING 137 MG/DL (70-100); HDL CHOLESTEROL 42 MG/DL (>40); IRON (FE) 92 UG/DL (50-170); LDL CHOLESTEROL 94 MG/DL (<100); NON-HDL-C 120 MG/DL; PERCENT SATURATION 29.5 % (13.2-45.0); POTASSIUM SERUM 3.7 MEQ/L (3.5-5.1); SODIUM LEVEL 139 MEQ/L (136-145); THYROID STIMULATING HORMONE 0.677 uIU/ML (0.358-3.740); TOTAL IRON BINDING CAPACITY 312 UG/DL (250-450); TOTAL PROTEIN 7.1 GM/DL (6.4-8.2); TRIGLYCERIDES LEVEL 132 MG/DL (<150)
== END ==
LOC: M SFHCPLAZ 09:46
PROVIDERS: ATTEND Family Medicine
DX: I10 Essential (primary) hypertension (principal); E66.9 Obesity, unspecified; R73.03 Prediabetes; K21.9 Gastro-esophageal reflux disease without esophagitis; E04.1 Nontoxic single thyroid nodule; D50.9 Iron deficiency anemia, unspecified

== ENCOUNTER → 2021-01-20 | Outpatient (CLI) | payer MEDICARE, MEDICAID ==
[~2021-01-20] MED LIST changes: +PROHANCE 279.3MG/ML 15ML VIAL As Ordered ONE; +PROHANCE 279.3MG/ML 5ML VIAL As Ordered ONE
--- NOTE | 2021-01-20 19:31 | REPVR ---
PROCEDURE INFORMATION: Exam: MR Lumbar Spine Without and With Contrast Exam date and time: 01/20/2021 10:54 AM Age: 55 years old Clinical indication: Low back pain; Additional info: Spondylosis w/o myelopathy or radiculopathy TECHNIQUE: Imaging protocol: Multiplanar magnetic resonance images of the lumbar spine without and with intravenous contrast. Contrast material: PROHANCE; Contrast volume: 20 ml; Contrast route: INTRAVENOUS (IV); COMPARISON: MRI-Spine, L.S. without con 11/11/2015 1:46 PM FINDINGS: Vertebrae: Unremarkable. Spinal cord: Normal signal. No cord compression. L1-L2: No significant disc disease. No significant spinal canal stenosis. No neural foraminal stenosis. L2-L3: There is a mild central spinal stenosis at L2-L3 secondary to diffuse annular bulging, a small right paracentral posterior disc protrusion thickened ligamentum flavum with mild facet joint arthropathy. L3-L4: There is a mild central spinal stenosis at L3-L4 secondary to diffuse annular bulging, thickened ligamentum flavum with mild facet joint arthropathy. L4-L5: There is a [id number] central spinal stenosis at L4-L5 secondary to diffuse annular bulging, thickened ligamentum flavum with moderate facet joint arthropathy. L5-S1: Diffusely bulging annulus L5-S1 without neural compromise. Moderate bilateral facet joint arthropathy. Other bones/joints: Lumbarized mobile 1st sacral segment. Soft tissues: Unremarkable. IMPRESSION: 1. Mild central spinal stenosis L2-L3, L3-L4 and [id number] central spinal stenosis L4-L5. Bulging annulus L5-S1 without neural compromise. 2. Lumbarized 1st sacral segment again redemonstrated. 3. Findings not significantly changed in comparison to the prior study of 2015. Electronically signed by: Kimani Mckeon On 01/20/2021 19:30:49 PM
== END ==
LOC: M RAD 10:01
PROVIDERS: ATTEND Student in an Organized Health Care Education/Training Program
DX: M47.816 Spondylosis without myelopathy or radiculopathy, lumbar region (principal)
CPT/HCPCS: 72158; A9576

== ENCOUNTER → 2021-04-21 | Outpatient (CLI) | payer MEDICARE, MEDICAID ==
[~2021-04-21] MED LIST changes: -PROHANCE 279.3MG/ML 15ML VIAL As Ordered ONE; -PROHANCE 279.3MG/ML 5ML VIAL As Ordered ONE
--- NOTE | 2021-04-21 17:53 | REP ---
INDICATION: R CW PAIN COMPARISON: 10/21/2018. TECHNIQUE: PA/Lateral FINDINGS: Lungs: Clear, no infiltrate. Heart: Normal in size. Mediastinum: Mediastinal silhouette unremarkable. Pleural angles: Unremarkable.. Bones and soft tissues: Unremarkable. IMPRESSION: No acute pulmonary disease. <Electronically signed by Theo Jc > 04/21/21 [id number]
== END ==
LOC: M RAD 17:07
PROVIDERS: ATTEND Physician Assistant Medical
DX: R07.9 Chest pain, unspecified (principal)

== ENCOUNTER → 2021-08-14 | Outpatient (REF) | payer MEDICARE, MEDICAID | LOC: M SFHCPLAZ 11:09 | PROVIDERS: ATTEND Family Medicine | DX: D50.9 Iron deficiency anemia, unspecified (principal); I10 Essential (primary) hypertension; M79.7 Fibromyalgia ==

== ENCOUNTER → 2021-09-18 | Outpatient (CLI) | payer MEDICARE, MEDICAID | LOC: M LABSMTC 09:48 | PROVIDERS: ATTEND Anesthesiology | DX: Z01.812 Encounter for preprocedural laboratory examination (principal); Z20.822 Contact with and (suspected) exposure to COVID-19 ==

== ENCOUNTER → 2021-09-19 | Outpatient (CLI) | payer MEDICARE, MEDICAID ==
[2021-09-19 17:52] LABS: BASO # 0.1 10^3/uL (0.0-0.2); BASO % 0.8 % (0.0-1.0); EOS # 0.2 10^3/uL (0.0-0.5); EOS % 2.3 % (0.0-3.0); HEMATOCRIT 43.8 % (36.0-47.0); HEMOGLOBIN 14.5 g/dl (12.0-15.5); LYMPH % 39.2 % (24.0-44.0); MEAN CORPUSCULAR HEMOGLOBIN 31.4 pg (27.0-33.0); MEAN CORPUSCULAR HGB CONC 33.1 g/dl (32.0-36.5); MEAN CORPUSCULAR VOLUME 94.8 fl (80.0-96.0); MONO # 0.7 10^3/uL (0.0-0.8); MONO % 8.5 % (2.0-8.0); NEUTROPHILS # 3.8 10^3/uL (1.5-8.5); NEUTROPHILS % 48.9 % (36.0-66.0); PLATELET COUNT, AUTOMATED 285 10^3/uL (150-450); RED BLOOD COUNT 4.62 10^6/uL (4.00-5.40); WHITE BLOOD COUNT 7.8 10^3/uL (4.0-10.0)
[2021-09-19 18:22] LABS: BLOOD UREA NITROGEN 14 MG/DL (7-18); CALCIUM LEVEL 9.7 MG/DL (8.5-10.1); CARBON DIOXIDE LEVEL 30 MEQ/L (21-32); CHLORIDE LEVEL 106 MEQ/L (98-107); CREATININE FOR GFR 0.61 MG/DL (0.55-1.30); FERRITIN 126 NG/ML (8-252); GLOMERULAR FILTRATION RATE > 60.0 (>51); GLUCOSE, FASTING 98 MG/DL (70-100); IRON (FE) 81 UG/DL (50-170); POTASSIUM SERUM 4.2 MEQ/L (3.5-5.1); SODIUM LEVEL 140 MEQ/L (136-145)
[2021-09-19 18:29] LABS: TOTAL 25(OH) VITAMIN D 13.2 NG/ML (30.0-100.0)
== END ==
LOC: M LAB 16:35
PROVIDERS: ATTEND Student in an Organized Health Care Education/Training Program
DX: Z01.818 Encounter for other preprocedural examination (principal); M79.7 Fibromyalgia; D50.9 Iron deficiency anemia, unspecified; I10 Essential (primary) hypertension; Z79.899 Other long term (current) drug therapy

== ENCOUNTER → 2021-09-19 | Outpatient (CLI) | payer MEDICARE, MEDICAID ==
[2021-09-19 18:30] LABS: HEMOGLOBIN A1c 5.9 %
== END ==
LOC: M LAB 16:43
PROVIDERS: ATTEND Student in an Organized Health Care Education/Training Program
DX: Z01.818 Encounter for other preprocedural examination (principal); Z79.899 Other long term (current) drug therapy

== ENCOUNTER → 2021-09-19 | Outpatient (REF) | payer MEDICARE, MEDICAID | LOC: M SFHCPLAZ 15:56 | PROVIDERS: ATTEND Family Medicine | DX: Z01.818 Encounter for other preprocedural examination (principal); Z79.899 Other long term (current) drug therapy ==

== ENCOUNTER 2021-09-22 09:34 | Day surgery (SDC) | payer MEDICARE, MEDICAID ==
[~2021-09-22] VITALS: Ht 157.5 cm; Wt 123.9 kg
[~2021-09-22 09:34] MED LIST changes: +LR 1,000 ML IV ONE
[2021-09-22] MEDS ORDERED: ROCURONIUM BROMIDE 50 MG/5 ML VIAL As Ordered ONE (10:54)
[2021-09-22] MEDS ORDERED: LIDOCAINE 2% 100MG/5ML SDV (FOR ANES.) As Ordered ONE (10:54)
[2021-09-22] MEDS ORDERED: propofoL 200 MG/20 ML VIAL As Ordered ONE (10:54)
[2021-09-22] MEDS ORDERED: MIDAZOLAM INJ 2MG/2ML VIAL (J2250 PER 1MG) As Ordered ONE (10:54)
[2021-09-22] MEDS ORDERED: fentaNYL 100 MCG/2 ML INJECTION As Ordered ONE ×2 (10:55→11:46)
[2021-09-22] MEDS ORDERED: METOCLOPRAMIDE INJ 10MG/2ML VIAL (J2765 PER 1) As Ordered ONE (11:23)
[2021-09-22] MEDS ORDERED: ONDANSETRON 4MG/2ML VIAL As Ordered ONE (11:23)
[2021-09-22] MEDS ORDERED: LR 1,000 ML IV SCH ×2 (12:15→12:20)
[2021-09-22] MEDS ORDERED: fentaNYL 100 MCG/2 ML INJECTION IV PRN (12:15)
[2021-09-22] MEDS ORDERED: ONDANSETRON 4MG/2ML VIAL IV PRN (12:15)
[2021-09-22] MEDS ORDERED: PERCOCET 5MG/325MG TAB PO PRN (12:15)
[2021-09-22 12:20] VITALS: BP 131/74
== END 2021-09-22 12:48 | disposition home or self-care (01) ==
LOC: M SDC 09:34
PROVIDERS: ATTEND Dentist Oral and Maxillofacial Surgery
DX: K02.9 Dental caries, unspecified (principal); I10 Essential (primary) hypertension; J45.909 Unspecified asthma, uncomplicated; M79.7 Fibromyalgia; F41.9 Anxiety disorder, unspecified; F43.10 Post-traumatic stress disorder, unspecified; G89.29 Other chronic pain; M54.9 Dorsalgia, unspecified; L40.50 Arthropathic psoriasis, unspecified; J32.9 Chronic sinusitis, unspecified; K21.9 Gastro-esophageal reflux disease without esophagitis; Z79.899 Other long term (current) drug therapy; Z79.2 Long term (current) use of antibiotics; Z86.16 Personal history of COVID-19; Z87.891 Personal history of nicotine dependence; Z88.1 Allergy status to other antibiotic agents; Z88.4 Allergy status to anesthetic agent; Z88.8 Allergy status to other drugs, medicaments and biological substances
CPT/HCPCS: 41899; 88300; J2250; J2405; J2765; J3010

== ENCOUNTER → 2021-11-17 | Outpatient (REF) | payer MEDICARE, MEDICAID ==
[~2021-11-17] MED LIST changes: -LR 1,000 ML IV ONE
== END ==
LOC: M LAB REF 14:18
PROVIDERS: ATTEND Physician Assistant
DX: R50.9 Fever, unspecified (principal)

== ENCOUNTER → 2022-04-27 | Outpatient (CLI) | payer MEDICARE, MEDICAID ==
[~2022-04-27] MED LIST changes: +ALBU6.7H6 INH; -PROV108A INH
[2022-04-27 10:42] LABS: HEMATOCRIT 43.9 % (36.0-47.0); HEMOGLOBIN 14.7 g/dl (12.0-15.5); MEAN CORPUSCULAR HEMOGLOBIN 31.4 pg (27.0-33.0); MEAN CORPUSCULAR HGB CONC 33.5 g/dl (32.0-36.5); MEAN CORPUSCULAR VOLUME 93.8 fl (80.0-96.0); PLATELET COUNT, AUTOMATED 239 10^3/uL (150-450); RED BLOOD COUNT 4.68 10^6/uL (4.00-5.40); WHITE BLOOD COUNT 5.9 10^3/uL (4.0-10.0)
[2022-04-27 11:05] LABS: HEMOGLOBIN A1c 5.8 %
[2022-04-27 11:45] LABS: BLOOD UREA NITROGEN 11 MG/DL (7-18); CALCIUM LEVEL 9.1 MG/DL (8.5-10.1); CARBON DIOXIDE LEVEL 29 MEQ/L (21-32); CHLORIDE LEVEL 104 MEQ/L (98-107); CHOLESTEROL LEVEL 160 MG/DL (<200); CHOLESTEROL RISK RATIO 3.404 (<5); CREATININE FOR GFR 0.75 MG/DL (0.55-1.30); FREE T4 0.96 NG/DL (0.76-1.46); GLOMERULAR FILTRATION RATE > 60.0 (>51); GLUCOSE, FASTING 102 MG/DL (70-100); HDL CHOLESTEROL 47 MG/DL (>40); LDL CHOLESTEROL 95 MG/DL (<100); NON-HDL-C 113 MG/DL; POTASSIUM SERUM 4.1 MEQ/L (3.5-5.1); SODIUM LEVEL 137 MEQ/L (136-145); THYROID STIMULATING HORMONE 0.931 uIU/ML (0.358-3.740); TRIGLYCERIDES LEVEL 91 MG/DL (<150)
[2022-04-27 12:20] LABS: VITAMIN B12 LEVEL 224 PG/ML (247-911)
[2022-04-27 12:48] LABS: HEPATITIS C VIRUS ABY INDEX < 0.0 INDEX (<0.8); HIV 1&2 SCREEN CENTAUR NEGATIVE (NEGATIVE)
[2022-04-28 08:13] LABS: FOLATE 8.8 ng/mL (>3.0)
== END ==
LOC: M PLALAB 08:29
PROVIDERS: ATTEND Student in an Organized Health Care Education/Training Program
DX: R73.03 Prediabetes (principal); Z11.4 Encounter for screening for human immunodeficiency virus [HIV]; E55.9 Vitamin D deficiency, unspecified; Z13.220 Encounter for screening for lipoid disorders; R20.0 Anesthesia of skin; Z79.899 Other long term (current) drug therapy

== ENCOUNTER → 2022-12-03 | Outpatient (CLI) | payer MEDICARE, MEDICAID | LOC: M PLAIMG 13:48 | PROVIDERS: ATTEND Physician Assistant | DX: M79.602 Pain in left arm (principal) ==

== ENCOUNTER → 2022-12-17 | Outpatient (CLI) | payer MEDICARE, MEDICAID | LOC: M SOG 14:29 | PROVIDERS: ATTEND Physician Assistant | DX: M79.622 Pain in left upper arm (principal); M79.632 Pain in left forearm ==

== ENCOUNTER → 2022-12-26 | Outpatient (CLI) | payer MEDICARE, MEDICAID ==
[2022-12-26 11:17] LABS: BASO # 0.1 10^3/uL (0.0-0.2); BASO % 1.3 % (0.0-1.0); EOS # 0.1 10^3/uL (0.0-0.5); EOS % 2.1 % (0.0-3.0); HEMATOCRIT 40.6 % (36.0-47.0); HEMOGLOBIN 13.7 g/dl (12.0-15.5); LYMPH # 2.3 10^3/uL (1.5-5.0); LYMPH % 38.1 % (24.0-44.0); MEAN CORPUSCULAR HEMOGLOBIN 30.6 pg (27.0-33.0); MEAN CORPUSCULAR HGB CONC 33.7 g/dl (32.0-36.5); MEAN CORPUSCULAR VOLUME 90.6 fl (80.0-96.0); MONO # 0.6 10^3/uL (0.0-0.8); MONO % 9.9 % (2.0-8.0); NEUTROPHILS % 48.4 % (36.0-66.0); PLATELET COUNT, AUTOMATED 292 10^3/uL (150-450); RED BLOOD COUNT 4.48 10^6/uL (4.00-5.40); WHITE BLOOD COUNT 6.1 10^3/uL (4.0-10.0)
[2022-12-26 11:49] LABS: ALBUMIN 3.3 G/DL (3.2-5.2); ALKALINE PHOSPHATASE 79 U/L (46-116); ALT/SGPT 21 U/L (7.0-40); AST/SGOT 32 U/L (<34); BILIRUBIN,TOTAL 0.6 MG/DL (0.3-1.2); BLOOD UREA NITROGEN 13 MG/DL (9-23); CALCIUM LEVEL 9.3 MG/DL (8.5-10.1); CARBON DIOXIDE LEVEL 28 MMOL/L (20-31); CHLORIDE LEVEL 102 MMOL/L (98-107); CREATININE FOR GFR 0.72 MG/DL (0.55-1.30); GLOMERULAR FILTRATION RATE > 60.0 (>51); GLUCOSE, FASTING 128 MG/DL (60-100); POTASSIUM SERUM 3.8 MMOL/L (3.5-5.1); SODIUM LEVEL 136 MMOL/L (136-145); TOTAL PROTEIN 6.9 G/DL (5.7-8.2)
[2022-12-26 11:51] LABS: VITAMIN B12 LEVEL 231 PG/ML (211-911)
[2022-12-26 13:30] LABS: ERYTHROCYTE SEDIMENTATION RATE 67 mm/hr (0-30)
== END ==
LOC: M PLALAB 08:55
PROVIDERS: ATTEND Student in an Organized Health Care Education/Training Program
DX: E53.8 Deficiency of other specified B group vitamins (principal)

== ENCOUNTER → 2023-02-06 | Outpatient (CLI) | payer MEDICARE, MEDICAID ==
[2023-02-06 15:01] LABS: HEMATOCRIT 32.5 % (36.0-47.0); HEMOGLOBIN 10.4 g/dl (12.0-15.5); MEAN CORPUSCULAR HEMOGLOBIN 28.3 pg (27.0-33.0); MEAN CORPUSCULAR VOLUME 88.3 fl (80.0-96.0); PLATELET COUNT, AUTOMATED 320 10^3/uL (150-450); RED BLOOD COUNT 3.68 10^6/uL (4.00-5.40); WHITE BLOOD COUNT 3.5 10^3/uL (4.0-10.0)
[2023-02-06 15:03] LABS: ALBUMIN 2.9 G/DL (3.2-5.2); ALKALINE PHOSPHATASE 57 U/L (46-116); ALT/SGPT 44 U/L (7.0-40); AST/SGOT 58 U/L (<34); BILIRUBIN,TOTAL 0.5 MG/DL (0.3-1.2); BLOOD UREA NITROGEN 17 MG/DL (9-23); CARBON DIOXIDE LEVEL 32 MMOL/L (20-31); CHLORIDE LEVEL 102 MMOL/L (98-107); CREATININE FOR GFR 0.54 MG/DL (0.55-1.30); GLOMERULAR FILTRATION RATE > 60.0 (>51); GLUCOSE, FASTING 95 MG/DL (60-100); POTASSIUM SERUM 3.6 MMOL/L (3.5-5.1); SODIUM LEVEL 140 MMOL/L (136-145); TOTAL PROTEIN 6.1 G/DL (5.7-8.2)
== END ==
LOC: M PLALAB 11:24
PROVIDERS: ATTEND Internal Medicine Medical Oncology
DX: C83.34 Diffuse large B-cell lymphoma, lymph nodes of axilla and upper limb (principal)

== ENCOUNTER → 2023-04-19 | Outpatient (REF) | payer MEDICARE | LOC: M SFHCPLAZ 16:28 | PROVIDERS: ATTEND Family Medicine | DX: R10.12 Left upper quadrant pain (principal) ==

== ENCOUNTER → 2023-04-20 | Outpatient (CLI) | payer MEDICARE ==
[2023-04-20 11:10] LABS: BASO % 1.3 % (0.0-1.0); HEMATOCRIT 37.5 % (36.0-47.0); HEMOGLOBIN 12.8 g/dl (12.0-15.5); LYMPH # 0.2 10^3/uL (1.5-5.0); LYMPH % 25.6 % (24.0-44.0); MEAN CORPUSCULAR HEMOGLOBIN 30.5 pg (27.0-33.0); MEAN CORPUSCULAR HGB CONC 34.1 g/dl (32.0-36.5); MEAN CORPUSCULAR VOLUME 89.3 fl (80.0-96.0); MONO # 0.3 10^3/uL (0.0-0.8); MONO % 37.2 % (2.0-8.0); NEUTROPHILS % 34.6 % (36.0-66.0); PLATELET COUNT, AUTOMATED 147 10^3/uL (150-450)
[2023-04-20 11:28] LABS: LIPASE 17 U/L (12-53)
[2023-04-20 11:30] LABS: ALBUMIN 3.4 G/DL (3.2-5.2); ALKALINE PHOSPHATASE 70 U/L (46-116); ALT/SGPT 19 U/L (7.0-40); AMYLASE 31 U/L (30-118); AST/SGOT < 8 U/L (<34); BILIRUBIN,TOTAL 1.2 MG/DL (0.3-1.2); BLOOD UREA NITROGEN 13 MG/DL (9-23); CALCIUM LEVEL 9.5 MG/DL (8.5-10.1); CARBON DIOXIDE LEVEL 31 MMOL/L (20-31); CHLORIDE LEVEL 97 MMOL/L (98-107); CREATININE FOR GFR 0.73 MG/DL (0.55-1.30); GLOMERULAR FILTRATION RATE > 60.0 (>51); GLUCOSE, FASTING 153 MG/DL (60-100); POTASSIUM SERUM 3.7 MMOL/L (3.5-5.1); SODIUM LEVEL 133 MMOL/L (136-145); TOTAL PROTEIN 6.6 G/DL (5.7-8.2)
[2023-04-20 12:30] LABS: NEUTROPHILS # 0.3 10^3/uL (1.5-8.5); WHITE BLOOD COUNT 0.8 10^3/uL (4.0-10.0)
== END ==
LOC: M LAB 09:41
PROVIDERS: ATTEND Student in an Organized Health Care Education/Training Program
DX: R10.12 Left upper quadrant pain (principal)

== ENCOUNTER → 2023-04-26 | Outpatient (CLI) | payer MEDICARE, MEDICAID ==
[2023-04-26 16:06] LABS: BASO # 0.1 10^3/uL (0.0-0.2); BASO % 1.6 % (0.0-1.0); EOS % 0.3 % (0.0-3.0); HEMOGLOBIN 10.1 g/dl (12.0-15.5); LYMPH # 0.6 10^3/uL (1.5-5.0); MEAN CORPUSCULAR HEMOGLOBIN 30.2 pg (27.0-33.0); MEAN CORPUSCULAR HGB CONC 32.6 g/dl (32.0-36.5); MEAN CORPUSCULAR VOLUME 92.8 fl (80.0-96.0); MONO # 0.6 10^3/uL (0.0-0.8); MONO % 14.6 % (2.0-8.0); NEUTROPHILS # 2.5 10^3/uL (1.5-8.5); NEUTROPHILS % 65.6 % (36.0-66.0); PLATELET COUNT, AUTOMATED 313 10^3/uL (150-450); RED BLOOD COUNT 3.34 10^6/uL (4.00-5.40); WHITE BLOOD COUNT 3.8 10^3/uL (4.0-10.0)
[2023-04-26 16:18] LABS: INR 1.29; PROTHROMBIN TIME 15.8 SECONDS (12.5-14.5)
[2023-04-26 16:28] LABS: ALBUMIN 2.9 G/DL (3.2-5.2); BLOOD UREA NITROGEN 7 MG/DL (9-23); CALCIUM LEVEL 8.7 MG/DL (8.5-10.1); CARBON DIOXIDE LEVEL 31 MMOL/L (20-31); CHLORIDE LEVEL 105 MMOL/L (98-107); CREATININE FOR GFR 0.52 MG/DL (0.55-1.30); GLOMERULAR FILTRATION RATE > 60.0 (>51); GLUCOSE, FASTING 95 MG/DL (60-100); MAGNESIUM LEVEL 1.8 MG/DL (1.8-2.4); PHOSPHORUS LEVEL 3.5 MG/DL (2.5-4.9); POTASSIUM SERUM 3.9 MMOL/L (3.5-5.1); SODIUM LEVEL 140 MMOL/L (136-145)
== END ==
LOC: M PLALAB 14:31
PROVIDERS: ATTEND Student in an Organized Health Care Education/Training Program
DX: D70.9 Neutropenia, unspecified (principal); I48.91 Unspecified atrial fibrillation; E87.8 Other disorders of electrolyte and fluid balance, not elsewhere classified; Z79.01 Long term (current) use of anticoagulants

== ENCOUNTER → 2023-04-26 | Outpatient (REF) | payer MEDICARE | LOC: M SFHCPLAZ 14:32 | PROVIDERS: ATTEND Student in an Organized Health Care Education/Training Program | DX: D70.9 Neutropenia, unspecified (principal); I48.91 Unspecified atrial fibrillation; E87.8 Other disorders of electrolyte and fluid balance, not elsewhere classified ==

== ENCOUNTER → 2023-06-13 | Outpatient (CLI) | payer MEDICARE, MEDICAID ==
[~2023-06-13] MED LIST changes: +DEXA2TA PO; +METO1TAB87 PO
== END ==
LOC: M ONCR 10:59
PROVIDERS: ATTEND General Practice
DX: C83.34 Diffuse large B-cell lymphoma, lymph nodes of axilla and upper limb (principal); Z71.2 Person consulting for explanation of examination or test findings; Z79.52 Long term (current) use of systemic steroids; Z79.899 Other long term (current) drug therapy; Z80.1 Family history of malignant neoplasm of trachea, bronchus and lung; Z88.4 Allergy status to anesthetic agent; Z88.5 Allergy status to narcotic agent; Z88.6 Allergy status to analgesic agent; Z87.891 Personal history of nicotine dependence; Z92.21 Personal history of antineoplastic chemotherapy; Z99.89 Dependence on other enabling machines and devices

== ENCOUNTER → 2023-06-21 | Outpatient (CLI) | payer MEDICARE ==
[~2023-06-21] MED LIST changes: +ACET-683 PO; +ALBU8.5H INH; +AMLO1TAB24 PO; +DOCU100C16 PO; +ELIQ5TAB PO; +FLAX1CAP5 PO; +FLUTISP NARES; +HYDR-3490 PO; +LASI40TA9 PO; +LOPR1TAB6 PO; +METO10TA3 PO; +METO50TA7 PO; +OLAN1TAB16 PO; +ONDA-196 PO; +PANT40TA29 PO; +POTA-149 PO; +POTA-151 PO; +PRED20TA PO; +SENO8.6T5 PO; +SFHHYD1CR EXT
[2023-06-21 14:19] LABS: BASO % 0.2 % (0.0-1.0); EOS # 0.1 10^3/uL (0.0-0.5); EOS % 1.3 % (0.0-3.0); HEMATOCRIT 42.4 % (36.0-47.0); HEMOGLOBIN 13.9 g/dl (12.0-15.5); LYMPH # 0.9 10^3/uL (1.5-5.0); LYMPH % 9.6 % (24.0-44.0); MEAN CORPUSCULAR HEMOGLOBIN 31.2 pg (27.0-33.0); MEAN CORPUSCULAR HGB CONC 32.8 g/dl (32.0-36.5); MEAN CORPUSCULAR VOLUME 95.3 fl (80.0-96.0); MONO # 0.6 10^3/uL (0.0-0.8); MONO % 7.1 % (2.0-8.0); NEUTROPHILS # 7.3 10^3/uL (1.5-8.5); NEUTROPHILS % 81.6 % (36.0-66.0); PLATELET COUNT, AUTOMATED 193 10^3/uL (150-450); RED BLOOD COUNT 4.45 10^6/uL (4.00-5.40)
[2023-06-21 14:33] LABS: ALBUMIN 3.1 G/DL (3.2-5.2); ALKALINE PHOSPHATASE 84 U/L (46-116); ALT/SGPT 36 U/L (7.0-40); AST/SGOT 28 U/L (<34); BILIRUBIN,TOTAL 0.7 MG/DL (0.3-1.2); BLOOD UREA NITROGEN 18 MG/DL (9-23); CALCIUM LEVEL 9.5 MG/DL (8.3-10.6); CARBON DIOXIDE LEVEL 31 MMOL/L (20-31); CHLORIDE LEVEL 103 MMOL/L (98-107); CREATININE FOR GFR 0.73 MG/DL (0.55-1.30); GLOMERULAR FILTRATION RATE > 60.0 (>45); GLUCOSE, FASTING 120 MG/DL (74-106); POTASSIUM SERUM 3.2 MMOL/L (3.5-5.1); SODIUM LEVEL 142 MMOL/L (136-145)
[2023-06-21 14:38] LABS: PROCALCITONIN <0.04 ng/ml
== END ==
LOC: M PLALAB 11:03
PROVIDERS: ATTEND Student in an Organized Health Care Education/Training Program
DX: R10.9 Unspecified abdominal pain (principal)

== ENCOUNTER → 2023-06-21 | Outpatient (REF) | payer MEDICARE ==
[~2023-06-21] MED LIST changes: -ACET-683 PO; -ALBU8.5H INH; -AMLO1TAB24 PO; -DOCU100C16 PO; -ELIQ5TAB PO; -FLAX1CAP5 PO; -FLUTISP NARES; -HYDR-3490 PO; -LASI40TA9 PO; -LOPR1TAB6 PO; -METO10TA3 PO; -METO50TA7 PO; -OLAN1TAB16 PO; -ONDA-196 PO; -PANT40TA29 PO; -POTA-149 PO; -POTA-151 PO; -PRED20TA PO; -SENO8.6T5 PO; -SFHHYD1CR EXT
== END ==
LOC: M SFHCPLAZ 00:24
PROVIDERS: ATTEND Student in an Organized Health Care Education/Training Program
DX: R10.9 Unspecified abdominal pain (principal)

== ENCOUNTER → 2023-07-01 | Outpatient (REF) | payer MEDICARE | LOC: M SFHCPLAZ 17:35 | PROVIDERS: ATTEND Student in an Organized Health Care Education/Training Program | DX: E55.9 Vitamin D deficiency, unspecified (principal); Z13.220 Encounter for screening for lipoid disorders; Z13.1 Encounter for screening for diabetes mellitus ==

== ENCOUNTER 2023-07-10 14:35 | Outpatient (RCR) | payer MEDICARE, MEDICAID | END 2023-07-11 | LOC: M ONCR 14:35 | PROVIDERS: ATTEND General Practice | DX: Z51.0 Encounter for antineoplastic radiation therapy (principal); C83.34 Diffuse large B-cell lymphoma, lymph nodes of axilla and upper limb ==

== ENCOUNTER 2023-07-15 13:12 | Outpatient (RCR) | payer MEDICARE, MEDICAID ==
[2023-07-18] MEDS ORDERED: ALBU8.5H INH (22:44)
[2023-07-18] MEDS ORDERED: FLAX1CAP5 PO (22:44)
[2023-07-18] MEDS ORDERED: DOCU100C16 PO (22:44)
[2023-07-18] MEDS ORDERED: SFHHYD1CR EXT (22:44)
[2023-07-18] MEDS ORDERED: ONDA-196 PO (22:52)
[2023-07-20] MEDS ORDERED: ELIQ5TAB PO (17:37)
[2023-07-21] MEDS ORDERED: PRED20TA PO (12:02)
[2023-07-21] MEDS ORDERED: SENO8.6T5 PO (12:02)
[2023-07-21] MEDS ORDERED: LASI40TA9 PO (12:02)
[2023-07-21] MEDS ORDERED: METO1TAB87 PO (12:02)
[2023-07-21] MEDS ORDERED: POTA-149 PO (12:02)
[2023-07-21] MEDS ORDERED: PANT40TA29 PO (12:04)
[2023-07-22] MEDS ORDERED: METO10TA3 PO (15:59)
[2023-07-22] MEDS ORDERED: POTA-151 PO (15:59)
[2023-07-22] MEDS ORDERED: METO1TAB87 PO (16:21)
[2023-07-22] MEDS ORDERED: SENO8.6T5 PO (16:23)
[2023-07-23] MEDS ORDERED: LOPR1TAB6 PO (11:31)
[2023-07-23] MEDS ORDERED: AMLO1TAB24 PO (11:31)
[2023-07-23] MEDS ORDERED: ACET-683 PO (11:31)
[2023-07-23] MEDS ORDERED: HYDR-3490 PO (11:31)
[2023-07-26] MEDS ORDERED: OLAN1TAB16 PO (08:38)
[2023-08-07] MEDS ORDERED: AMLO1TAB24 PO (19:18)
[2023-08-07] MEDS ORDERED: ELIQ5TAB PO (19:22)
[2023-08-07] MEDS ORDERED: HYDR-3490 PO (19:24)
[2023-08-07] MEDS ORDERED: FLUTISP NARES (19:24)
[2023-08-07] MEDS ORDERED: METO50TA7 PO (19:26)
[2023-08-07] MEDS ORDERED: PANT40TA29 PO (19:30)
== END 2023-08-11 ==
LOC: M PT 13:12
PROVIDERS: ATTEND General Practice
DX: I89.0 Lymphedema, not elsewhere classified (principal)

== ENCOUNTER 2023-07-22 11:47 | Observation (INO) | payer MEDICARE, MEDICAID ==
[~2023-07-22] VITALS: Ht 157.5 cm; Wt 92.0 kg
[~2023-07-22 11:47] MED LIST changes: +ALBU8.5H INH; +DOCU100C16 PO; +ELIQ5TAB PO; +FLAX1CAP5 PO; +LASI40TA9 PO; +ONDA-196 PO; +PANT40TA29 PO; +POTA-149 PO; +PRED20TA PO; +SENO8.6T5 PO; +SFHHYD1CR EXT
[2023-07-22] MEDS ORDERED: MED REC IN PROGRESS XX SCH (15:40)
[2023-07-22] MEDS ORDERED: POTA-151 PO (15:59)
[2023-07-22] MEDS ORDERED: METO10TA3 PO (15:59)
[2023-07-22] MEDS ORDERED: hydrALAZINE 20MG/ML 1ML VIAL IV ONE (16:20)
[2023-07-22] MEDS ORDERED: METO1TAB87 PO (16:21)
[2023-07-22] MEDS ORDERED: SENO8.6T5 PO (16:23)
[2023-07-22] MEDS ORDERED: ONDANSETRON 4MG 2ML VIAL IV PRN (16:30)
[2023-07-22] MEDS ORDERED: HOME MED LIST COMPLETE! XX SCH (16:30)
[2023-07-22] MEDS ORDERED: HYDROMORPHONE HCL 0.5 MG/ 0.5 ML SYRINGE IV ONE (16:30)
[2023-07-22] MEDS ORDERED: oxyCODONE 5MG TAB PO SCH (17:00)
[2023-07-22] MEDS ORDERED: ACETAMINOPHEN 325 MG TAB PO ONE (17:00)
[2023-07-22 17:43] LABS: HEMATOCRIT 40.9 % (36.0-47.0); HEMOGLOBIN 13.4 g/dl (12.0-15.5); MEAN CORPUSCULAR HEMOGLOBIN 30.2 pg (27.0-33.0); MEAN CORPUSCULAR HGB CONC 32.8 g/dl (32.0-36.5); MEAN CORPUSCULAR VOLUME 92.1 fl (80.0-96.0); PLATELET COUNT, AUTOMATED 254 10^3/uL (150-450); RED BLOOD COUNT 4.44 10^6/uL (4.00-5.40); WHITE BLOOD COUNT 4.7 10^3/uL (4.0-10.0)
[2023-07-22 17:52] LABS: INR 1.4; PROTHROMBIN TIME 16.7 SECONDS (12.5-14.5)
[2023-07-22] MEDS: cloNIDine 0.1MG TABLET PO SCH ×2 (18:00→23:18)
[2023-07-22 18:06] LABS: BLOOD UREA NITROGEN 16 MG/DL (9-23); CALCIUM LEVEL 9.9 MG/DL (8.3-10.6); CARBON DIOXIDE LEVEL 34 MMOL/L (20-31); CHLORIDE LEVEL 102 MMOL/L (98-107); CREATININE FOR GFR 0.54 MG/DL (0.55-1.30); GLOMERULAR FILTRATION RATE > 60.0 (>45); GLUCOSE, FASTING 136 MG/DL (74-106); POTASSIUM SERUM 3.6 MMOL/L (3.5-5.1); SODIUM LEVEL 140 MMOL/L (136-145)
[2023-07-22 20:40] VITALS: BP 159/86; TEMP 98.2; O2SAT 97
[2023-07-22] MEDS ORDERED: LOSARTAN 50MG TABLET PO SCH (21:00)
[2023-07-22] MEDS: DOCUSATE SODIUM 100MG CAPSULE PO SCH (21:09)
[2023-07-22] MEDS: APIXABAN 5 MG TAB (ELIQUIS) PO SCH (21:09)
[2023-07-22] MEDS: METOPROLOL TART 50 MG TAB PO SCH (21:09)
[2023-07-22] MEDS: oxyCODONE 5MG TAB PO SCH (21:10)
[2023-07-22] MEDS ORDERED: ALPRAZolam 0.5 MG TAB PO PRN (21:25)
[2023-07-23] MEDS ORDERED: ACETAMINOPHEN 325 MG TAB PO PRN (03:45)
[2023-07-23 06:00] VITALS: BP 165/92; TEMP 97.2; O2SAT 97
[2023-07-23] MEDS: cloNIDine 0.1MG TABLET PO SCH ×2 (06:10→12:06)
[2023-07-23 07:20] VITALS: BP 161/89; TEMP 97.9; O2SAT 96
[2023-07-23] MEDS ORDERED: FUROSEMIDE 40MG/4ML VIAL IV ONE (08:00)
[2023-07-23] MEDS: APIXABAN 5 MG TAB (ELIQUIS) PO SCH (08:37)
[2023-07-23 08:39] VITALS: BP 161/89; TEMP 97.9
[2023-07-23] MEDS: oxyCODONE 5MG TAB PO SCH ×2 (08:39→12:08)
[2023-07-23] MEDS: METOPROLOL TART 50 MG TAB PO SCH (08:39)
[2023-07-23] MEDS: DOCUSATE SODIUM 100MG CAPSULE PO SCH (08:40)
[2023-07-23] MEDS ORDERED: ACETAMINOPHEN 500 MG TAB PO SCH (09:00)
[2023-07-23] MEDS ORDERED: predniSONE 20 MG TAB PO SCH (09:00)
[2023-07-23] MEDS ORDERED: SODIUM CHLORIDE 0.9% INJ 10 ML SYR IV SCH (09:00)
[2023-07-23] MEDS ORDERED: AMLO1TAB24 PO (11:31)
[2023-07-23] MEDS ORDERED: HYDR-3490 PO (11:31)
[2023-07-23] MEDS ORDERED: ACET-683 PO (11:31)
[2023-07-23] MEDS ORDERED: LOPR1TAB6 PO (11:31)
[2023-07-23 12:06] VITALS: BP 149/89
[2023-07-23] MEDS ORDERED: SODIUM CHLORIDE 0.9% INJ 10 ML SYR IV PRN (12:35)
[2023-07-23 13:08] VITALS: O2SAT 94
[2023-07-25] MEDS ORDERED: APIXABAN 5 MG TAB (ELIQUIS) PO SCH (21:00)
== END 2023-07-23 13:38 | disposition home or self-care (01) ==
LOC: M ED 11:47 → M ED INP 11:48 → ENRESERV 20:15 → M MSPAV 20:40
PROVIDERS: ADMIT Internal Medicine Nephrology; ATTEND Internal Medicine Nephrology
DX: I16.0 Hypertensive urgency (principal); M79.602 Pain in left arm; I50.32 Chronic diastolic (congestive) heart failure; I82.A12 Acute embolism and thrombosis of left axillary vein; G54.0 Brachial plexus disorders; C83.34 Diffuse large B-cell lymphoma, lymph nodes of axilla and upper limb; E66.01 Morbid (severe) obesity due to excess calories; Z68.37 Body mass index [BMI] 37.0-37.9, adult; G47.33 Obstructive sleep apnea (adult) (pediatric); F41.9 Anxiety disorder, unspecified; M79.7 Fibromyalgia; F43.10 Post-traumatic stress disorder, unspecified; I11.0 Hypertensive heart disease with heart failure; G56.93 Unspecified mononeuropathy of bilateral upper limbs; M40.209 Unspecified kyphosis, site unspecified; Z87.891 Personal history of nicotine dependence; Z80.1 Family history of malignant neoplasm of trachea, bronchus and lung; Z88.4 Allergy status to anesthetic agent; Z88.1 Allergy status to other antibiotic agents; Z88.2 Allergy status to sulfonamides; Z88.5 Allergy status to narcotic agent; Z88.8 Allergy status to other drugs, medicaments and biological substances; Z79.899 Other long term (current) drug therapy; Z79.891 Long term (current) use of opiate analgesic; Z79.01 Long term (current) use of anticoagulants; Z79.52 Long term (current) use of systemic steroids
CPT/HCPCS: 36415; 80048; 85027; 85610; 87635; 96374; 96375; 99284; G0378; J0360; J1170; J1940; J7512

== ENCOUNTER → 2023-07-26 | Outpatient (CLI) | payer MEDICARE, MEDICAID ==
[~2023-07-26] MED LIST changes: +ACET-683 PO; +AMLO1TAB24 PO; +HYDR-3490 PO; +LOPR1TAB6 PO; +METO10TA3 PO; +OLAN1TAB16 PO; +POTA-151 PO
== END ==
LOC: M ONCR 08:11
PROVIDERS: ATTEND General Practice
DX: R11.0 Nausea (principal); R22.32 Localized swelling, mass and lump, left upper limb

== ENCOUNTER 2023-08-09 13:28 | Outpatient (RCR) | payer MEDICARE, MEDICAID ==
[~2023-08-09 13:28] MED LIST changes: +FLUTISP NARES; +LIDOCAINE 2% JELLY 6ML SYRINGE TOP PRN; +METO50TA7 PO
== END 2023-08-11 ==
LOC: M ONCR 13:28
PROVIDERS: ATTEND General Practice
DX: Z51.0 Encounter for antineoplastic radiation therapy (principal); C83.34 Diffuse large B-cell lymphoma, lymph nodes of axilla and upper limb

== ENCOUNTER → 2023-08-19 | Outpatient (REF) | payer MEDICARE, MEDICAID ==
[~2023-08-19] MED LIST changes: -LIDOCAINE 2% JELLY 6ML SYRINGE TOP PRN
[2023-08-19 08:44] LABS: HEMATOCRIT 35.5 % (36.0-47.0); HEMOGLOBIN 11.6 g/dl (12.0-15.5); MEAN CORPUSCULAR HEMOGLOBIN 30.1 pg (27.0-33.0); MEAN CORPUSCULAR HGB CONC 32.7 g/dl (32.0-36.5); MEAN CORPUSCULAR VOLUME 92.2 fl (80.0-96.0); PLATELET COUNT, AUTOMATED 285 10^3/uL (150-450); RED BLOOD COUNT 3.85 10^6/uL (4.00-5.40); WHITE BLOOD COUNT 7.1 10^3/uL (4.0-10.0)
[2023-08-19 09:13] LABS: ALBUMIN 2.4 G/DL (3.2-5.2); ALKALINE PHOSPHATASE 282 U/L (46-116); ALT/SGPT 24 U/L (7.0-40); AST/SGOT 36 U/L (<34); BILIRUBIN,TOTAL 0.6 MG/DL (0.3-1.2); BLOOD UREA NITROGEN 20 MG/DL (9-23); CALCIUM LEVEL 12.2 MG/DL (8.3-10.6); CARBON DIOXIDE LEVEL 25 MMOL/L (20-31); CHLORIDE LEVEL 109 MMOL/L (98-107); CREATININE FOR GFR 0.61 MG/DL (0.55-1.30); GLOMERULAR FILTRATION RATE > 60.0 (>45); GLUCOSE, FASTING 91 MG/DL (74-106); MAGNESIUM LEVEL 1.7 MG/DL (1.8-2.4); POTASSIUM SERUM 4.2 MMOL/L (3.5-5.1); SODIUM LEVEL 142 MMOL/L (136-145); TOTAL PROTEIN 5.1 G/DL (5.7-8.2)
== END ==
LOC: SKLAB3 07:33
PROVIDERS: ATTEND Internal Medicine
DX: E83.52 Hypercalcemia (principal); E83.42 Hypomagnesemia; E87.6 Hypokalemia; C85.90 Non-Hodgkin lymphoma, unspecified, unspecified site

== ENCOUNTER → 2023-08-20 | Outpatient (CLI) | payer MEDICARE, MEDICAID | LOC: M RAD 11:39 | PROVIDERS: ATTEND Nurse Practitioner Family | DX: R51.9 Headache, unspecified (principal); R07.81 Pleurodynia; M79.651 Pain in right thigh; M25.532 Pain in left wrist; M19.022 Primary osteoarthritis, left elbow; M79.632 Pain in left forearm; W18.30XA Fall on same level, unspecified, initial encounter; R42 Dizziness and giddiness ==

== ENCOUNTER → 2023-08-20 | Outpatient (REF) | payer MEDICARE, MEDICAID ==
[2023-08-20 11:26] LABS: BASO % 0.5 % (0.0-1.0); EOS % 0.3 % (0.0-3.0); HEMATOCRIT 33.3 % (36.0-47.0); HEMOGLOBIN 10.8 g/dl (12.0-15.5); LYMPH # 1.2 10^3/uL (1.5-5.0); LYMPH % 19.1 % (24.0-44.0); MEAN CORPUSCULAR HEMOGLOBIN 29.9 pg (27.0-33.0); MEAN CORPUSCULAR HGB CONC 32.4 g/dl (32.0-36.5); MEAN CORPUSCULAR VOLUME 92.2 fl (80.0-96.0); MONO # 0.4 10^3/uL (0.0-0.8); MONO % 5.7 % (2.0-8.0); NEUTROPHILS # 4.8 10^3/uL (1.5-8.5); NEUTROPHILS % 73.8 % (36.0-66.0); PLATELET COUNT, AUTOMATED 253 10^3/uL (150-450); RED BLOOD COUNT 3.61 10^6/uL (4.00-5.40); WHITE BLOOD COUNT 6.5 10^3/uL (4.0-10.0)
[2023-08-20 11:58] LABS: ALBUMIN 2.1 G/DL (3.2-5.2); ALKALINE PHOSPHATASE 326 U/L (46-116); ALT/SGPT 23 U/L (7.0-40); AST/SGOT 39 U/L (<34); BILIRUBIN,TOTAL 0.6 MG/DL (0.3-1.2); BLOOD UREA NITROGEN 18 MG/DL (9-23); CALCIUM LEVEL 12.5 MG/DL (8.3-10.6); CARBON DIOXIDE LEVEL 28 MMOL/L (20-31); CHLORIDE LEVEL 109 MMOL/L (98-107); CREATININE FOR GFR 0.58 MG/DL (0.55-1.30); GLOMERULAR FILTRATION RATE > 60.0 (>45); GLUCOSE, FASTING 110 MG/DL (74-106); POTASSIUM SERUM 3.6 MMOL/L (3.5-5.1); SODIUM LEVEL 141 MMOL/L (136-145); TOTAL PROTEIN 4.6 G/DL (5.7-8.2)
== END ==
LOC: SKLAB3 10:37
PROVIDERS: ATTEND Internal Medicine
DX: R42 Dizziness and giddiness (principal)

== ENCOUNTER → 2023-08-22 | Outpatient (CLI) | payer MEDICARE, MEDICAID | LOC: M RAD 14:25 | PROVIDERS: ATTEND Nurse Practitioner Family | DX: R47.81 Slurred speech (principal); R29.810 Facial weakness ==

== ENCOUNTER → 2023-08-24 | Outpatient (REF) | payer MEDICARE, MEDICAID ==
[~2023-08-24] MED LIST changes: +ACET1TAB55 PO; +ACET650S3 PR; +BISA10SU4 PR; +FERR220E10 PO; +FLEEENE12 PR; +FLUT15.820 NARES; +GUAI100S51 PO; +LOPE2TAB14 PO; +MILKSUS3 PO; +MOUKOT60 PO; +POTA-150 PO; +POTA10CA60 PO; -SFHHYD1CR EXT; +SFHHYD1CR TOP; +VANC250C3 PO
== END ==
LOC: SKLAB3 18:00
PROVIDERS: ATTEND Internal Medicine
DX: R09.89 Other specified symptoms and signs involving the circulatory and respiratory systems (principal); R05.9 Cough, unspecified

== ENCOUNTER 2023-08-25 20:46 | Inpatient (IN) | payer MEDICARE, MEDICAID ==
[~2023-08-25] VITALS: Ht 165.1 cm; Wt 84.5 kg
[~2023-08-25 20:46] MED LIST changes: -ACET1TAB55 PO; -ACET650S3 PR; -BISA10SU4 PR; -FERR220E10 PO; -FLEEENE12 PR; -FLUT15.820 NARES; -GUAI100S51 PO; -LOPE2TAB14 PO; -MILKSUS3 PO; -MOUKOT60 PO; -POTA-150 PO; -POTA10CA60 PO; -VANC250C3 PO
[2023-08-25] MEDS ORDERED: FUROSEMIDE 40MG/4ML VIAL IV ONE (20:50)
[2023-08-25] MEDS: IPRATROPIUM 0.5MG/ALBUTEROL 2.5MG INH SOL UD 3ML (DUONEB) NEB PRN ×2 (21:02→21:03)
[2023-08-25 21:16] LABS: BASO % 0.2 % (0.0-1.0); EOS % 0.1 % (0.0-3.0); HEMATOCRIT 35.8 % (36.0-47.0); HEMOGLOBIN 11.4 g/dl (12.0-15.5); LYMPH # 1.1 10^3/uL (1.5-5.0); LYMPH % 8.6 % (24.0-44.0); MEAN CORPUSCULAR HEMOGLOBIN 30.5 pg (27.0-33.0); MEAN CORPUSCULAR HGB CONC 31.8 g/dl (32.0-36.5); MEAN CORPUSCULAR VOLUME 95.7 fl (80.0-96.0); MONO # 0.4 10^3/uL (0.0-0.8); MONO % 3.6 % (2.0-8.0); NEUTROPHILS # 10.7 10^3/uL (1.5-8.5); NEUTROPHILS % 87.1 % (36.0-66.0); PLATELET COUNT, AUTOMATED 274 10^3/uL (150-450); RED BLOOD COUNT 3.74 10^6/uL (4.00-5.40); WHITE BLOOD COUNT 12.2 10^3/uL (4.0-10.0)
[2023-08-25] MEDS ORDERED: ISOVUE-370 76% 100ML VIAL As Ordered ONE (21:28)
[2023-08-25 21:30] LABS: ABG BASE EXCESS -0.7 (-2.0-2.0); ABG HCO3 23.3 MMOL/L (22.0-26.0); ABG O2 SATURATION 99.5 % (95.0-99.0); ABG PARTIAL PRESSURE CO2 36.3 mmHg (35.0-45.0); ABG PARTIAL PRESSURE O2 202.7 mmHg (75.0-100.0); ABG TOTAL CO2 24.5 MMOL/L (23.0-31.0); ABG pH (ARTERIAL) 7.426 UNITS (7.350-7.450)
[2023-08-25 21:39] LABS: CPK CREATINE PHOSPHOKINASE 19 U/L (34-145)
[2023-08-25 21:51] LABS: PROCALCITONIN 0.33 ng/ml
[2023-08-25 21:53] LABS: ALBUMIN 2.1 G/DL (3.2-5.2); ALKALINE PHOSPHATASE 215 U/L (46-116); ALT/SGPT 13 U/L (7.0-40); AST/SGOT 30 U/L (<34); BILIRUBIN,DIRECT 0.3 MG/DL (<0.4); BILIRUBIN,TOTAL 0.6 MG/DL (0.3-1.2); BLOOD UREA NITROGEN 25 MG/DL (9-23); CALCIUM LEVEL 13.3 MG/DL (8.3-10.6); CARBON DIOXIDE LEVEL 26 MMOL/L (20-31); CHLORIDE LEVEL 114 MMOL/L (98-107); CK-MB VALUE MASS < 1.0 NG/ML (<3.6); CREATININE FOR GFR 0.59 MG/DL (0.55-1.30); GLOMERULAR FILTRATION RATE > 60.0 (>45); GLUCOSE, FASTING 98 MG/DL (74-106); MB/CK RELATIVE INDEX 5.26 (< OR =4); POTASSIUM SERUM 3.6 MMOL/L (3.5-5.1); SODIUM LEVEL 149 MMOL/L (136-145); THYROID STIMULATING HORMONE 0.526 uIU/ML (0.55-4.78)
[2023-08-25 22:08] VITALS: BP 157/93
[2023-08-25] MEDS: METOPROLOL 5 MG/5 ML VIAL IV SCH ×3 (22:08→22:18)
[2023-08-25] MEDS ORDERED: NS 1,000 ML IV SCH (22:35)
[2023-08-25] MEDS ORDERED: NS 1,000 ML IV ONE (22:35)
[2023-08-25] MEDS ORDERED: LevoFLOXacin IV 750 MG in IV 1 EA IV ONE (23:00)
[2023-08-26] VITALS (23 sets, daily range): BP systolic 96–139; BP diastolic 53–72; TEMP 97.4–99.1; O2SAT 86–99
[2023-08-26] MEDS ORDERED: NS 1,000 ML IV SCH (00:05)
[2023-08-26] MEDS: SODIUM CHLORIDE 0.9% 1000ML IV SCH (00:05)
[2023-08-26] MEDS: ALBUTEROL SULFATE 2.5MG/0.5ML INH NEB SOLN INH SCH ×4 (00:54→19:17)
[2023-08-26] MEDS: D5W/0.45% SODIUM CHLORIDE 1,000 ML IV SCH ×3 (01:28→14:48)
[2023-08-26] MEDS: metroNIDAZOLE 500 MG in IV 1 EA IV SCH ×3 (01:29→16:52)
[2023-08-26 02:54] LABS: BLOOD UREA NITROGEN 24 MG/DL (9-23); CARBON DIOXIDE LEVEL 26 MMOL/L (20-31); CHLORIDE LEVEL 113 MMOL/L (98-107); CREATININE FOR GFR 0.59 MG/DL (0.55-1.30); GLOMERULAR FILTRATION RATE > 60.0 (>45); GLUCOSE, FASTING 143 MG/DL (74-106); POTASSIUM SERUM 3.2 MMOL/L (3.5-5.1); SODIUM LEVEL 149 MMOL/L (136-145)
[2023-08-26] MEDS: CALCITONIN SALMON (MIACALCIN) 400INTERNATIONAL UNITS/2ML VIAL SC SCH ×2 (03:10→20:36)
[2023-08-26] MEDS: HYDROMORPHONE HCL 0.5 MG/ 0.5 ML SYRINGE IV PRN ×2 (04:02→20:24)
[2023-08-26] MEDS: KCL 10MEQ/100ML SWI (KRUN) 10 MEQ in IV 1 EA IV SCH ×3 (04:02→05:55)
[2023-08-26] MEDS ORDERED: DIGOXIN INJ 0.5 MG/2 ML AMP IV ONE (05:00)
[2023-08-26] MEDS: HEPARIN SOD (PORCINE) 5000UNITS/ML 1ML VIAL/SYRINGE SC SCH ×2 (05:54→14:47)
[2023-08-26 06:23] LABS: BLOOD UREA NITROGEN 22 MG/DL (9-23); CALCIUM LEVEL 11.6 MG/DL (8.3-10.6); CARBON DIOXIDE LEVEL 26 MMOL/L (20-31); CHLORIDE LEVEL 115 MMOL/L (98-107); CREATININE FOR GFR 0.52 MG/DL (0.55-1.30); GLOMERULAR FILTRATION RATE > 60.0 (>45); GLUCOSE, FASTING 151 MG/DL (74-106); PHOSPHORUS LEVEL 2.6 MG/DL (2.4-5.1); POTASSIUM SERUM 3.7 MMOL/L (3.5-5.1); SODIUM LEVEL 148 MMOL/L (136-145)
[2023-08-26 07:40] LABS: HEMOGLOBIN 10.1 g/dl (12.0-15.5); MEAN CORPUSCULAR HEMOGLOBIN 29.8 pg (27.0-33.0); MEAN CORPUSCULAR HGB CONC 31.6 g/dl (32.0-36.5); MEAN CORPUSCULAR VOLUME 94.4 fl (80.0-96.0); PLATELET COUNT, AUTOMATED 254 10^3/uL (150-450); RED BLOOD COUNT 3.39 10^6/uL (4.00-5.40); WHITE BLOOD COUNT 11.8 10^3/uL (4.0-10.0)
[2023-08-26 07:52] LABS: MAGNESIUM LEVEL 1.5 MG/DL (1.8-2.4)
[2023-08-26 07:58] LABS: FREE T4 1.18 NG/DL (0.89-1.76); TOTAL 25(OH) VITAMIN D 29.3 NG/ML (20.0-100.0)
[2023-08-26 08:10] LABS: ATYPICAL LYMPH 5 % (0-5); MONOCYTES 1 % (0-5); NEUTROPHILS 93 % (28-66)
[2023-08-26 08:11] LABS: PLATELET ESTIMATE NORMAL (NORMAL)
[2023-08-26 08:12] LABS: TOXIC GRANULATION 2+
[2023-08-26] MEDS: PANTOPRAZOLE 40MG VIAL IV SCH (09:21)
[2023-08-26 10:53] LABS: BLOOD UREA NITROGEN 21 MG/DL (9-23); CARBON DIOXIDE LEVEL 27 MMOL/L (20-31); CHLORIDE LEVEL 115 MMOL/L (98-107); CREATININE FOR GFR 0.49 MG/DL (0.55-1.30); GLOMERULAR FILTRATION RATE > 60.0 (>45); GLUCOSE, FASTING 153 MG/DL (74-106); PHOSPHORUS LEVEL 1.7 MG/DL (2.4-5.1); POTASSIUM SERUM 3.4 MMOL/L (3.5-5.1); SODIUM LEVEL 148 MMOL/L (136-145)
[2023-08-26] MEDS: MAG SULF 1GM/100ML (MAG RUN) 1 GM in IV 1 EA IV SCH ×2 (11:10→13:14)
[2023-08-26] MEDS ORDERED: POTA10CA60 PO (11:13)
[2023-08-26] MEDS ORDERED: FERR220E10 PO (11:13)
[2023-08-26] MEDS ORDERED: FLUT15.820 NARES (11:13)
[2023-08-26] MEDS ORDERED: OLAN1TAB16 PO (11:13)
[2023-08-26] MEDS ORDERED: ACET-683 PO (11:13)
[2023-08-26] MEDS ORDERED: LORazepam 1 MG TAB PO ONE (11:30)
[2023-08-26] MEDS ORDERED: LORazepam 2 MG/ML 1ML VIAL IV PRN (11:40)
[2023-08-26] MEDS ORDERED: FLEEENE12 PR (12:08)
[2023-08-26] MEDS ORDERED: LOPE2TAB14 PO (12:08)
[2023-08-26] MEDS ORDERED: BISA10SU4 PR (12:08)
[2023-08-26] MEDS ORDERED: ACET1TAB55 PO (12:08)
[2023-08-26] MEDS ORDERED: MOUKOT60 PO (12:08)
[2023-08-26] MEDS ORDERED: VANC250C3 PO (12:08)
[2023-08-26] MEDS ORDERED: ACET650S3 PR (12:08)
[2023-08-26] MEDS ORDERED: MILKSUS3 PO (12:08)
[2023-08-26] MEDS ORDERED: GUAI100S51 PO (12:08)
[2023-08-26] MEDS ORDERED: POTA-150 PO (12:08)
[2023-08-26] MEDS ORDERED: HOME MED LIST COMPLETE! XX SCH (12:10)
[2023-08-26] MEDS ORDERED: POTASSIUM PHOSPHATE INJ 30 MMOL in D5W 500 ML IV ONE (14:00)
[2023-08-26 16:08] LABS: IONIZED CALCIUM 5.4 MG/DL (4.5-5.3)
[2023-08-26 16:35] LABS: BLOOD UREA NITROGEN 22 MG/DL (9-23); CALCIUM LEVEL 10.5 MG/DL (8.3-10.6); CARBON DIOXIDE LEVEL 27 MMOL/L (20-31); CHLORIDE LEVEL 112 MMOL/L (98-107); CREATININE FOR GFR 0.49 MG/DL (0.55-1.30); GLOMERULAR FILTRATION RATE > 60.0 (>45); GLUCOSE, FASTING 195 MG/DL (74-106); MAGNESIUM LEVEL 1.9 MG/DL (1.8-2.4); POTASSIUM SERUM 3.1 MMOL/L (3.5-5.1); SODIUM LEVEL 147 MMOL/L (136-145)
[2023-08-26] MEDS ORDERED: KCL 10MEQ/100ML SWI (KRUN) 10 MEQ in IV 1 EA IV ONE ×2 (17:00→19:00)
[2023-08-26] MEDS ORDERED: ZOLEDRONIC ACID 4 MG in IV 1 EA IV ONE (17:00)
[2023-08-26] MEDS: KCL 10MEQ IN D5/0.45NS 1000ML 1,000 ML IV SCH (18:02)
[2023-08-26] MEDS: ENOXAPARIN 80MG/0.8ML SYRINGE (J1650 PER 10MG) SC SCH (20:36)
[2023-08-26] MEDS ORDERED: LORazepam 2 MG/ML 1ML VIAL IM STA (21:03)
[2023-08-26] MEDS: LevoFLOXacin IV 750 MG in IV 1 EA IV SCH (22:47)
[2023-08-26 23:07] LABS: BLOOD UREA NITROGEN 21 MG/DL (9-23); CALCIUM LEVEL 9.5 MG/DL (8.3-10.6); CARBON DIOXIDE LEVEL 27 MMOL/L (20-31); CHLORIDE LEVEL 110 MMOL/L (98-107); CREATININE FOR GFR 0.45 MG/DL (0.55-1.30); GLOMERULAR FILTRATION RATE > 60.0 (>45); GLUCOSE, FASTING 189 MG/DL (74-106); MAGNESIUM LEVEL 1.6 MG/DL (1.8-2.4); POTASSIUM SERUM 3.3 MMOL/L (3.5-5.1); SODIUM LEVEL 144 MMOL/L (136-145)
[2023-08-26] MEDS ORDERED: MAG SULF 1GM/100ML (MAG RUN) 1 GM in IV 1 EA IV ONE (23:45)
[2023-08-27] VITALS (15 sets, daily range): BP systolic 131–156; BP diastolic 63–80; TEMP 98.6–100.1; O2SAT 91–98
[2023-08-27] MEDS: metroNIDAZOLE 500 MG in IV 1 EA IV SCH ×3 (00:35→18:25)
[2023-08-27] MEDS: KCL 10MEQ/100ML SWI (KRUN) 10 MEQ in IV 1 EA IV SCH ×2 (01:07→02:12)
[2023-08-27] MEDS: KCL 10MEQ IN D5/0.45NS 1000ML 1,000 ML IV SCH ×5 (02:13→20:12)
[2023-08-27] MEDS: ALBUTEROL SULFATE 2.5MG/0.5ML INH NEB SOLN INH SCH ×4 (02:17→21:45)
[2023-08-27] MEDS: CALCITONIN SALMON (MIACALCIN) 400INTERNATIONAL UNITS/2ML VIAL SC SCH ×2 (05:20→20:27)
[2023-08-27 05:45] LABS: BASO % 0.1 % (0.0-1.0); HEMATOCRIT 27.3 % (36.0-47.0); HEMOGLOBIN 9.1 g/dl (12.0-15.5); LYMPH # 0.7 10^3/uL (1.5-5.0); LYMPH % 6.7 % (24.0-44.0); MEAN CORPUSCULAR HEMOGLOBIN 30.4 pg (27.0-33.0); MEAN CORPUSCULAR HGB CONC 33.3 g/dl (32.0-36.5); MEAN CORPUSCULAR VOLUME 91.3 fl (80.0-96.0); MONO # 0.6 10^3/uL (0.0-0.8); MONO % 5.5 % (2.0-8.0); NEUTROPHILS # 8.9 10^3/uL (1.5-8.5); NEUTROPHILS % 86.6 % (36.0-66.0); PLATELET COUNT, AUTOMATED 247 10^3/uL (150-450); RED BLOOD COUNT 2.99 10^6/uL (4.00-5.40); WHITE BLOOD COUNT 10.2 10^3/uL (4.0-10.0)
[2023-08-27 06:07] LABS: ALBUMIN 1.7 G/DL (3.2-5.2); ALKALINE PHOSPHATASE 152 U/L (46-116); ALT/SGPT 11 U/L (7.0-40); AST/SGOT 19 U/L (<34); BILIRUBIN,TOTAL 0.5 MG/DL (0.3-1.2); BLOOD UREA NITROGEN 17 MG/DL (9-23); CALCIUM LEVEL 9.3 MG/DL (8.3-10.6); CARBON DIOXIDE LEVEL 25 MMOL/L (20-31); CHLORIDE LEVEL 109 MMOL/L (98-107); GLOMERULAR FILTRATION RATE > 60.0 (>45); GLUCOSE, FASTING 147 MG/DL (74-106); MAGNESIUM LEVEL 1.6 MG/DL (1.8-2.4); POTASSIUM SERUM 3.5 MMOL/L (3.5-5.1); SODIUM LEVEL 142 MMOL/L (136-145); TOTAL PROTEIN 4.4 G/DL (5.7-8.2)
[2023-08-27] MEDS ORDERED: MAG SULF 1GM/100ML (MAG RUN) 1 GM in IV 1 EA IV ONE ×2 (07:00→08:00)
[2023-08-27] MEDS: ENOXAPARIN 80MG/0.8ML SYRINGE (J1650 PER 10MG) SC SCH (08:23)
[2023-08-27] MEDS: PANTOPRAZOLE 40MG VIAL IV SCH (08:23)
[2023-08-27] MEDS ORDERED: ACETAMINOPHEN 650MG SUPP PR PRN (08:55)
[2023-08-27] MEDS ORDERED: IMMUNE GLOBULIN 10% 0 GM in IV 1 EA IV SCH (09:00)
[2023-08-27] MEDS ORDERED: dexAMETHasone 20MG/5ML VIAL IV SCH (09:00)
[2023-08-27] MEDS: IMMUNE GLOBULIN 10% 40 GM in IV 1 EA IV SCH (10:51)
[2023-08-27] MEDS: ONDANSETRON 4MG 2ML VIAL IV PRN (11:51)
[2023-08-27] MEDS ORDERED: GLUCOSE 4GM CHEW TABLET PO PRN (11:55)
[2023-08-27] MEDS ORDERED: GLUCAGON INJ 1MG VIAL SC PRN (11:55)
[2023-08-27] MEDS ORDERED: DEXTROSE 50% 50ML SYRINGE IV PRN (11:55)
[2023-08-27] MEDS: LORazepam 2 MG/ML 1ML VIAL IV PRN (14:09)
[2023-08-27] MEDS ORDERED: ISOVUE-370 76% 100ML VIAL As Ordered ONE ×2 (17:44→18:09)
[2023-08-27] MEDS ORDERED: OLANZapine INTRAMUSCULAR 10MG VIAL IM ONE (21:00)
[2023-08-27] MEDS: LevoFLOXacin IV 750 MG in IV 1 EA IV SCH (23:18)
[2023-08-28] VITALS (10 sets, daily range): BP systolic 120–176; BP diastolic 56–88; TEMP 97.6–99.1; O2SAT 94–98
[2023-08-28] MEDS: metroNIDAZOLE 500 MG in IV 1 EA IV SCH ×3 (00:54→16:35)
[2023-08-28] MEDS: LORazepam 2 MG/ML 1ML VIAL IV PRN ×2 (01:09→08:49)
[2023-08-28] MEDS: ALBUTEROL SULFATE 2.5MG/0.5ML INH NEB SOLN INH SCH ×4 (01:22→20:41)
[2023-08-28] MEDS: HYDROMORPHONE HCL 0.5 MG/ 0.5 ML SYRINGE IV PRN ×2 (02:09→21:41)
[2023-08-28] MEDS: KCL 10MEQ IN D5/0.45NS 1000ML 1,000 ML IV SCH ×3 (02:09→21:47)
[2023-08-28 06:17] LABS: BASO % 0.1 % (0.0-1.0); HEMATOCRIT 26.5 % (36.0-47.0); HEMOGLOBIN 8.6 g/dl (12.0-15.5); LYMPH # 0.4 10^3/uL (1.5-5.0); LYMPH % 4.8 % (24.0-44.0); MEAN CORPUSCULAR HEMOGLOBIN 29.8 pg (27.0-33.0); MEAN CORPUSCULAR HGB CONC 32.5 g/dl (32.0-36.5); MEAN CORPUSCULAR VOLUME 91.7 fl (80.0-96.0); MONO # 0.4 10^3/uL (0.0-0.8); MONO % 4.5 % (2.0-8.0); NEUTROPHILS # 7.6 10^3/uL (1.5-8.5); NEUTROPHILS % 89.4 % (36.0-66.0); PLATELET COUNT, AUTOMATED 209 10^3/uL (150-450); RED BLOOD COUNT 2.89 10^6/uL (4.00-5.40); WHITE BLOOD COUNT 8.5 10^3/uL (4.0-10.0)
[2023-08-28 06:52] LABS: ALBUMIN 1.6 G/DL (3.2-5.2); ALKALINE PHOSPHATASE 121 U/L (46-116); ALT/SGPT 12 U/L (7.0-40); AST/SGOT 19 U/L (<34); BILIRUBIN,TOTAL 0.5 MG/DL (0.3-1.2); BLOOD UREA NITROGEN 9 MG/DL (9-23); CALCIUM LEVEL 7.8 MG/DL (8.3-10.6); CARBON DIOXIDE LEVEL 26 MMOL/L (20-31); CHLORIDE LEVEL 110 MMOL/L (98-107); CREATININE FOR GFR 0.32 MG/DL (0.55-1.30); GLOMERULAR FILTRATION RATE > 60.0 (>45); GLUCOSE, FASTING 150 MG/DL (74-106); MAGNESIUM LEVEL 1.4 MG/DL (1.8-2.4); POTASSIUM SERUM 2.8 MMOL/L (3.5-5.1); SODIUM LEVEL 144 MMOL/L (136-145)
[2023-08-28] MEDS: PANTOPRAZOLE 40MG VIAL IV SCH (07:48)
[2023-08-28] MEDS: MAG SULF 1GM/100ML (MAG RUN) 1 GM in IV 1 EA IV SCH ×3 (07:49→09:59)
[2023-08-28] MEDS ORDERED: KCL 10MEQ/100ML SWI (KRUN) 10 MEQ in IV 1 EA IV SCH (08:00)
[2023-08-28] MEDS: ONDANSETRON 4MG 2ML VIAL IV PRN (08:32)
[2023-08-28] MEDS: IMMUNE GLOBULIN 10% 40 GM in IV 1 EA IV SCH (10:00)
[2023-08-28] MEDS: KCL 10MEQ/100ML SWI (KRUN) 10 MEQ in IV 1 EA IV SCH ×4 (11:06→14:40)
[2023-08-28 12:36] LABS: BLOOD UREA NITROGEN 8 MG/DL (9-23); CALCIUM LEVEL 7.6 MG/DL (8.3-10.6); CARBON DIOXIDE LEVEL 26 MMOL/L (20-31); CHLORIDE LEVEL 109 MMOL/L (98-107); CREATININE FOR GFR 0.31 MG/DL (0.55-1.30); GLOMERULAR FILTRATION RATE > 60.0 (>45); GLUCOSE, FASTING 137 MG/DL (74-106); SODIUM LEVEL 144 MMOL/L (136-145)
[2023-08-28 16:39] LABS: INR 1.73; PROTHROMBIN TIME 19.7 SECONDS (12.5-14.5)
[2023-08-28 16:40] LABS: PARTIAL THROMBOPLASTIN TIME 31.2 SECONDS (24.8-34.2)
[2023-08-28] MEDS ORDERED: FAT EMULSION IV 250 ML IV ONE (18:00)
[2023-08-28] MEDS ORDERED: AMINO AC/ELECTROLYTE/DEX/CALC 1,000 ML IV SCH (18:00)
[2023-08-28] MEDS ORDERED: KCL 20MEQ IN 100ML SWI (KRUN) 20 MEQ in IV 1 EA IV SCH ×2 (18:00)
[2023-08-29] MEDS: LevoFLOXacin IV 750 MG in IV 1 EA IV SCH (00:31)
[2023-08-29 00:32] VITALS: BP 134/68; TEMP 98; O2SAT 96
[2023-08-29] MEDS: ALBUTEROL SULFATE 2.5MG/0.5ML INH NEB SOLN INH SCH ×2 (02:23→07:58)
[2023-08-29] MEDS: metroNIDAZOLE 500 MG in IV 1 EA IV SCH ×2 (02:31→10:33)
[2023-08-29] MEDS: HYDROMORPHONE HCL 0.5 MG/ 0.5 ML SYRINGE IV PRN (02:36)
[2023-08-29] MEDS: KCL 10MEQ IN D5/0.45NS 1000ML 1,000 ML IV SCH (05:56)
[2023-08-29 05:58] VITALS: BP 140/60; TEMP 97.8; O2SAT 95
[2023-08-29 06:47] LABS: BASO % 0.2 % (0.0-1.0); HEMATOCRIT 28.9 % (36.0-47.0); HEMOGLOBIN 9.5 g/dl (12.0-15.5); LYMPH # 0.4 10^3/uL (1.5-5.0); LYMPH % 4.3 % (24.0-44.0); MEAN CORPUSCULAR HGB CONC 32.9 g/dl (32.0-36.5); MEAN CORPUSCULAR VOLUME 91.2 fl (80.0-96.0); MONO # 0.5 10^3/uL (0.0-0.8); MONO % 5.4 % (2.0-8.0); NEUTROPHILS # 7.4 10^3/uL (1.5-8.5); PLATELET COUNT, AUTOMATED 197 10^3/uL (150-450); RED BLOOD COUNT 3.17 10^6/uL (4.00-5.40); WHITE BLOOD COUNT 8.4 10^3/uL (4.0-10.0)
[2023-08-29 07:00] LABS: INR 1.62; PROTHROMBIN TIME 18.7 SECONDS (12.5-14.5)
[2023-08-29 07:22] LABS: ALBUMIN 1.7 G/DL (3.2-5.2); ALKALINE PHOSPHATASE 113 U/L (46-116); ALT/SGPT 13 U/L (7.0-40); AST/SGOT 30 U/L (<34); BILIRUBIN,TOTAL 0.5 MG/DL (0.3-1.2); BLOOD UREA NITROGEN 10 MG/DL (9-23); CALCIUM LEVEL 7.3 MG/DL (8.3-10.6); CARBON DIOXIDE LEVEL 24 MMOL/L (20-31); CHLORIDE LEVEL 110 MMOL/L (98-107); CREATININE FOR GFR 0.27 MG/DL (0.55-1.30); GLOMERULAR FILTRATION RATE > 60.0 (>45); GLUCOSE, FASTING 140 MG/DL (74-106); MAGNESIUM LEVEL 1.6 MG/DL (1.8-2.4); POTASSIUM SERUM 3.3 MMOL/L (3.5-5.1); SODIUM LEVEL 141 MMOL/L (136-145); TOTAL PROTEIN 5.7 G/DL (5.7-8.2)
[2023-08-29 07:45] VITALS: BP 176/93; TEMP 97.1; O2SAT 97
[2023-08-29] MEDS ORDERED: KCL 20MEQ IN 100ML SWI (KRUN) 20 MEQ in IV 1 EA IV ONE ×2 (08:00)
[2023-08-29 09:00] VITALS: BP 138/76
[2023-08-29] MEDS: PANTOPRAZOLE 40MG VIAL IV SCH (09:06)
[2023-08-29] MEDS ORDERED: BISACODYL 10MG SUPP PR PRN (13:05)
[2023-08-29] MEDS ORDERED: ACETAMINOPHEN 650MG SUPP PR PRN (13:05)
[2023-08-29] MEDS ORDERED: ONDANSETRON 4MG 2ML VIAL IV PRN (13:05)
[2023-08-29] MEDS ORDERED: SCOPOLAMINE 1MG TRANSDERMAL PATCH TOP PRN (13:05)
[2023-08-29] MEDS ORDERED: LORazepam 1 MG TAB PO PRN (13:05)
[2023-08-29] MEDS ORDERED: FLEET ENEMA PR PRN (13:05)
[2023-08-29] MEDS ORDERED: HYOSCYAMINE SULFATE 0.125 MG SUBL TABLET PO PRN (13:05)
[2023-08-29] MEDS ORDERED: ACETAMINOPHEN TAB 650MG DOSE (2X325MG) PO PRN (13:05)
[2023-08-29] MEDS ORDERED: ATROPINE SULFATE 1% OPHTH SOLN 2ML BTL SL PRN (13:05)
[2023-08-29] MEDS ORDERED: ONDANSETRON 4MG ORAL DISINTEGRATING TAB PO PRN (13:05)
[2023-08-29] MEDS ORDERED: MORPHINE 10MG/0.5ML ORAL CONCENTRATE SOLUTION U/D SL PRN (13:05)
[2023-08-29] MEDS: MAG SULF 1GM/100ML (MAG RUN) 1 GM in IV 1 EA IV SCH ×2 (13:40→13:41)
[2023-08-29] MEDS: MORPHINE 2 MG/ML 1ML VIAL IV PRN ×4 (14:24→22:58)
[2023-08-29] MEDS: LORazepam 2 MG/ML 1ML VIAL IV PRN ×3 (15:11→21:38)
[2023-08-29] MEDS ORDERED: LORazepam 2 MG/ML 1ML VIAL IV STA (22:55)
[2023-08-29] MEDS ORDERED: MORPHINE 2 MG/ML 1ML VIAL IV ONE (22:55)
[2023-08-30] MEDS: MORPHINE 2 MG/ML 1ML VIAL IV PRN (00:26)
[2023-08-30] MEDS: LORazepam 2 MG/ML 1ML VIAL IV PRN ×9 (01:01→22:37)
[2023-08-30] MEDS: MORPHINE 4 MG/ML 1ML VIAL IV PRN ×3 (02:02→06:26)
[2023-08-30] MEDS ORDERED: HALOPERIDOL 5MG/ML 1ML VIAL IV PRN (08:00)
[2023-08-30] MEDS ORDERED: HYDROmorphone HCL 2MG/ML 1ML VIAL IV PRN ×2 (08:00→20:45)
[2023-08-30] MEDS ORDERED: HYDROMORPHONE HCL 0.5 MG/ 0.5 ML SYRINGE IV PRN ×2 (08:15→10:15)
[2023-08-30] MEDS ORDERED: LORazepam 2 MG/ML 1ML VIAL IV PRN (08:40)
[2023-08-30 10:08] LABS: VGCC ANTIBODY <1.0 pmol/L (0.0-30.0)
[2023-08-30] MEDS ORDERED: diphenhydrAMINE 50MG/ML VIAL IV PRN (11:20)
[2023-08-30] MEDS ORDERED: FENTANYL REMOVAL DOCUMENTATION MISC XX SCH (16:55)
[2023-08-30 17:08] LABS: PTH RELATED PEPTIDE < 2.0 pmol/L (.); VITAMIN D 1,25 DIHYDROXY 53.2 pg/mL (24.8-81.5)
[2023-08-30] MEDS ORDERED: fentaNYL 25 MCG/HR PATCH TOP SCH (18:00)
== END 2023-08-30 22:51 | disposition expired | DRG 871 ==
LOC: M ED 20:46 → M ED INP 23:37 → M ICU 08-26 00:51 → M PCU 08-28 01:40
PROVIDERS: ADMIT Internal Medicine; ATTEND Internal Medicine
DX: A41.9 Sepsis, unspecified organism (principal); J69.0 Pneumonitis due to inhalation of food and vomit; J96.01 Acute respiratory failure with hypoxia; G93.41 Metabolic encephalopathy; J15.69 Pneumonia due to other Gram-negative bacteria; C83.33 Diffuse large B-cell lymphoma, intra-abdominal lymph nodes; E87.20 Acidosis, unspecified; E87.0 Hyperosmolality and hypernatremia; N30.00 Acute cystitis without hematuria; E83.52 Hypercalcemia; I48.91 Unspecified atrial fibrillation; Z92.3 Personal history of irradiation; G62.0 Drug-induced polyneuropathy; T45.1X5D Adverse effect of antineoplastic and immunosuppressive drugs, subsequent encounter; R13.10 Dysphagia, unspecified; L40.50 Arthropathic psoriasis, unspecified; F43.10 Post-traumatic stress disorder, unspecified; R47.02 Dysphasia; Z51.5 Encounter for palliative care; Z66 Do not resuscitate; E88.09 Other disorders of plasma-protein metabolism, not elsewhere classified; E83.39 Other disorders of phosphorus metabolism; K21.9 Gastro-esophageal reflux disease without esophagitis; E87.6 Hypokalemia; E83.42 Hypomagnesemia; R60.1 Generalized edema; R53.1 Weakness; R65.20 Severe sepsis without septic shock; G70.00 Myasthenia gravis without (acute) exacerbation; R57.1 Hypovolemic shock; Z79.01 Long term (current) use of anticoagulants; Z86.718 Personal history of other venous thrombosis and embolism; Z90.49 Acquired absence of other specified parts of digestive tract; Z79.899 Other long term (current) drug therapy; Z88.1 Allergy status to other antibiotic agents; Z88.2 Allergy status to sulfonamides; Z88.8 Allergy status to other drugs, medicaments and biological substances; Z88.5 Allergy status to narcotic agent; Z88.6 Allergy status to analgesic agent

== ENCOUNTER 2023-08-28 09:09 | Outpatient (RCR) | payer MEDICARE, MEDICAID ==
[~2023-08-28 09:09] MED LIST changes: +ACET1TAB55 PO; +ACET650S3 PR; +BISA10SU4 PR; +FERR220E10 PO; +FLEEENE12 PR; +FLUT15.820 NARES; +GUAI100S51 PO; +LOPE2TAB14 PO; +MILKSUS3 PO; +MOUKOT60 PO; +POTA-150 PO; +POTA10CA60 PO; +VANC250C3 PO
[2023-08-28] MEDS ORDERED: ISOVUE-370 76% 100ML VIAL As Ordered ONE (12:33)
== END 2023-08-30 ==
LOC: M ONCR 09:09
PROVIDERS: ATTEND General Practice
DX: Z51.0 Encounter for antineoplastic radiation therapy (principal); C83.34 Diffuse large B-cell lymphoma, lymph nodes of axilla and upper limb
CPT/HCPCS: 77412; Q9967